=== PATIENT | female | born 1970 | race African-American/Black ===

== ENCOUNTER 2018-05-02 09:42 | Emergency (ER) | payer SELFPAY ==
[~2018-05-02] VITALS: Ht 167.6 cm; Wt 71.2 kg
[~2018-05-02 09:42] MED LIST: DIVA250T51; FLOUXETINE; QUET50TA; SIMV-13; TRIA50CA38
[2018-05-02 09:57] VITALS: BP 128/83
[2018-05-02] MEDS ORDERED: IPRATROPIUM BROM 0.5 MG/2.5ML INH SOL NEB ONE (10:45)
[2018-05-02] MEDS ORDERED: ALBUTEROL SULF 2.5 MG/0.5ML(0.5%) NEB SOLN NEB ONE (10:45)
== END 2018-05-02 11:15 | disposition home or self-care (01) ==
LOC: ER 09:42 → EDSEX 09:42 → ER 11:15
DX: J45.909 Unspecified asthma, uncomplicated (principal); I10 Essential (primary) hypertension
CPT/HCPCS: 71046; 94640; 99283; J7611; J7644

== ENCOUNTER → 2020-04-21 | Outpatient (CLI) | payer OTHER, MEDICAID ==
[~2020-04-21] MED LIST changes: +TRIA1CAP5; -TRIA50CA38
== END | disposition home or self-care (01) ==
LOC: Rad HDHVI 09:59
PROVIDERS: ATTEND Internal Medicine
DX: R07.89 Other chest pain (principal); Z86.73 Personal history of transient ischemic attack (TIA), and cerebral infarction without residual deficits
CPT/HCPCS: 93306

== ENCOUNTER → 2020-04-22 | Outpatient (CLI) | payer OTHER, MEDICAID | END | disposition home or self-care (01) | LOC: Rad HDHVI 08:07 | PROVIDERS: ATTEND Internal Medicine | DX: R07.89 Other chest pain (principal); Z86.73 Personal history of transient ischemic attack (TIA), and cerebral infarction without residual deficits | CPT/HCPCS: 93880 ==

== ENCOUNTER → 2020-04-29 | Outpatient (CLI) | payer OTHER, MEDICAID ==
[~2020-04-29] VITALS: Ht 167.6 cm; Wt 69.9 kg
== END | disposition home or self-care (01) ==
LOC: Rad HDHVI 13:09
PROVIDERS: ATTEND Internal Medicine
DX: I10 Essential (primary) hypertension (principal); E78.00 Pure hypercholesterolemia, unspecified; R07.89 Other chest pain; Z86.73 Personal history of transient ischemic attack (TIA), and cerebral infarction without residual deficits; Z82.49 Family history of ischemic heart disease and other diseases of the circulatory system
CPT/HCPCS: 78452; 93017; 96374; A9500

== ENCOUNTER 2021-05-30 09:29 | Inpatient (IN) | payer OTHER, MEDICAID ==
[~2021-05-30] VITALS: Ht 165.1 cm; Wt 76.2 kg
[~2021-05-30 09:29] MED LIST changes: +DIVA250T4; -DIVA250T51
[2021-05-30 10:04] LABS: Basophils # (auto) 0 10 ^3/uL (0-0.2); Eosinophils # (auto) 0.1 10 ^3/uL (0-0.8); Eosinophils % (auto) 1.2 % (0.0-7.0); Hematocrit 42.2 % (36.0-46.0); Hemoglobin 14.4 g/dL (12.2-16.2); Lymphocytes # (auto) 1.4 10 ^3/uL (0.4-5.4); Lymphocytes % (auto) 29.4 % (10.0-50.0); Mean Corpuscular Hemoglobin 31.7 pg (28.0-32.0); Mean Corpuscular Hgb Conc. 34.1 g/dL (32.0-36.0); Mean Corpuscular Volume 92.8 fL (80.0-100.0); Monocytes # (auto) 0.2 10 ^3/uL (0-1.3); Monocytes % (auto) 4.6 % (0.0-12.0); Neutrophils # (auto) 3.1 10 ^3/uL (1.6-8.6); Neutrophils % (auto) 63.8 % (37.0-80.0); Nucleated Red Blood Cells % 0.1 %; Red Blood Cells 4.55 10^6/uL (4.0-5.20); White Blood Cell 4.9 10^3/uL (4.4-10.8)
[2021-05-30 10:19] LABS: Albumin 3.5 g/dL (3.4-5.0); Calcium 8.9 mg/dL (8.5-10.1); Potassium 3.2 mmol/L (3.5-5.1)
[2021-05-30 10:22] LABS: BUN/Creatinine Ratio 15.5; Bilirubin, Total 0.2 mg/dL (0.2-1.0); Total Protein 7.7 g/dL (6.4-8.2)
[2021-05-30 10:40] LABS: INR 0.96 (0.9-1.15); Partial Thromboplastin Time 24.5 sec (23.6-33.0)
[2021-05-30] MEDS ORDERED: ONDANSETRON ODT 4 MG TAB PO ONE (11:15)
[2021-05-30] MEDS ORDERED: MORPHINE SULFATE INJECTION 2 MG/ML SYRG IM ONE (11:15)
[2021-05-30] MEDS ORDERED: POTASSIUM CHL 20 Meq TABLET PO ONE (11:15)
[2021-05-30] MEDS ORDERED: ONDANSETRON HCL 4 MG/2 ML VIAL IV ONE (11:45)
[2021-05-30] MEDS ORDERED: ACETAMINOPHEN/CODEINE#3 (300/30mg) TAB PO ONE (15:45)
[2021-05-30] MEDS ORDERED: HYDROcodone-ACET 5/325MG TAB PO ONE (18:30)
[2021-05-30] MEDS ORDERED: NITROGLYCERIN 0.4 MG SL TAB SL PRN (18:30)
[2021-05-30 23:00] VITALS: BP 133/66
[2021-05-31] MEDS ORDERED: LORazepam 2MG/ML-1ML VIAL IV PRN ×2 (00:15)
[2021-05-31] MEDS: HYDROcodone-ACET 5/325MG TAB PO PRN ×2 (00:43→18:37)
[2021-05-31] MEDS: ZOLPIDEM TARTRATE 5 MG TAB PO PRN (01:37)
[2021-05-31] MEDS ORDERED: TRIATAB3 PO (03:56)
[2021-05-31] MEDS ORDERED: LAMO100T44 PO (03:56)
[2021-05-31] MEDS ORDERED: ASPI-543 PO (03:56)
[2021-05-31] MEDS ORDERED: LURA40TA PO (03:56)
[2021-05-31] MEDS ORDERED: ZOLP10TA6 PO (03:56)
[2021-05-31] MEDS ORDERED: CLON0.5T3 PO (03:56)
[2021-05-31] MEDS ORDERED: ESTR1TAB6 PO (03:56)
[2021-05-31] MEDS ORDERED: LISI-275 PO (03:56)
[2021-05-31 05:28] LABS: Cholesterol 147 mg/dL (< 200); Triglycerides 85 mg/dL (< 150)
[2021-05-31 05:30] LABS: HDL Cholesterol 37 mg/dL (40-59); LDL Cholesterol 95 mg/dL (< 100)
[2021-05-31 08:37] LABS: INR 0.99 (0.9-1.15); Partial Thromboplastin Time 24.3 sec (23.6-33.0)
[2021-05-31 08:44] LABS: CRP High Sensitivity 0.94 mg/dL (< 0.3)
[2021-05-31] MEDS ORDERED: GADOTERATE MEG 7.5 MMOL/15ml INJ (0.5MMOL/ml) IV ONE (08:49)
[2021-05-31] MEDS: lamoTRIgine 100 MG TAB PO SCH ×2 (09:54→22:41)
[2021-05-31] MEDS: ASPirin 81 mg TAB PO SCH (09:54)
[2021-05-31] MEDS: FLUoxetine HCL 20 MG CAP PO SCH (09:55)
[2021-05-31] MEDS ORDERED: LATUDA 60 MG PO SCH ×2 (10:00→20:00)
[2021-05-31] MEDS ORDERED: diphenhdrAMINE HCL 25 MG CAP PO PRN (13:15)
[2021-05-31 22:30] VITALS: BP 114/73
[2021-05-31] MEDS: ATORVASTATIN 20 MG TAB PO SCH (22:41)
[2021-06-01] MEDS: HYDROcodone-ACET 5/325MG TAB PO PRN ×3 (00:40→17:36)
[2021-06-01 05:11] VITALS: BP 118/69
[2021-06-01 08:11] LABS: BUN/Creatinine Ratio 22.8; Bilirubin, Total 0.2 mg/dL (0.2-1.0); Calcium 8.5 mg/dL (8.5-10.1); Potassium 3.7 mmol/L (3.5-5.1); Total Protein 6.7 g/dL (6.4-8.2)
[2021-06-01 09:00] VITALS: BP 109/69
[2021-06-01] MEDS: ASPirin 81 mg TAB PO SCH (10:34)
[2021-06-01] MEDS: lamoTRIgine 100 MG TAB PO SCH ×2 (10:34→21:09)
[2021-06-01] MEDS: FLUoxetine HCL 20 MG CAP PO SCH (10:34)
[2021-06-01 13:00] VITALS: BP 120/85
[2021-06-01 17:00] VITALS: BP 132/62
[2021-06-01] MEDS: LATUDA 20 MG TAB PO SCH (21:09)
[2021-06-01] MEDS: ATORVASTATIN 20 MG TAB PO SCH (21:09)
[2021-06-01] MEDS: DOCUSATE SOD 100 MG CAP PO SCH (21:10)
[2021-06-01 22:00] VITALS: BP 119/85
[2021-06-02] MEDS: HYDROcodone-ACET 5/325MG TAB PO PRN ×2 (04:27→22:58)
[2021-06-02 05:26] VITALS: BP 117/72
[2021-06-02] MEDS: MORPHINE SULFATE INJECTION 2 MG/ML SYRG IV PRN ×2 (08:37→17:00)
[2021-06-02 09:00] VITALS: BP 115/74
[2021-06-02] MEDS: lamoTRIgine 100 MG TAB PO SCH ×2 (10:00→22:56)
[2021-06-02] MEDS: DOCUSATE SOD 100 MG CAP PO SCH ×2 (10:00→22:55)
[2021-06-02] MEDS: ASPirin 81 mg TAB PO SCH (10:00)
[2021-06-02] MEDS: FLUoxetine HCL 20 MG CAP PO SCH (10:00)
[2021-06-02 13:00] VITALS: BP 134/90
[2021-06-02 17:00] VITALS: BP 138/93
[2021-06-02 22:00] VITALS: BP 128/78
[2021-06-02] MEDS: ATORVASTATIN 20 MG TAB PO SCH (22:57)
[2021-06-02] MEDS: ZOLPIDEM TARTRATE 5 MG TAB PO PRN (22:58)
[2021-06-02] MEDS: LATUDA 20 MG TAB PO SCH (23:53)
[2021-06-03 05:00] VITALS: BP 124/87
[2021-06-03 09:00] VITALS: BP 139/96
[2021-06-03] MEDS: ASPirin 81 mg TAB PO SCH (10:00)
[2021-06-03] MEDS: FLUoxetine HCL 20 MG CAP PO SCH (10:00)
[2021-06-03] MEDS: lamoTRIgine 100 MG TAB PO SCH (10:00)
[2021-06-03] MEDS: DOCUSATE SOD 100 MG CAP PO SCH (10:00)
[2021-06-03] MEDS: HYDROcodone-ACET 5/325MG TAB PO PRN (10:10)
[2021-06-03] MEDS ORDERED: ASPI-498 OR (11:14)
[2021-06-03] MEDS ORDERED: FLUO60TA7 PO (11:14)
[2021-06-03] MEDS ORDERED: HYDR-4902 PO (11:14)
[2021-06-03 11:54] VITALS: BP 139/96
[2021-06-03 13:00] VITALS: BP 143/83
== END 2021-06-03 14:56 | disposition home or self-care (01) | DRG 101 ==
LOC: ER 09:29 → OVERFLOW 18:26 → WEST WING 05-31 22:20
PROVIDERS: ADMIT Hospitalist; ATTEND Family Medicine
DX: G40.209 Localization-related (focal) (partial) symptomatic epilepsy and epileptic syndromes with complex partial seizures, not intractable, without status epilepticus (principal); I16.9 Hypertensive crisis, unspecified; I69.354 Hemiplegia and hemiparesis following cerebral infarction affecting left non-dominant side; H53.8 Other visual disturbances; E66.01 Morbid (severe) obesity due to excess calories; E78.5 Hyperlipidemia, unspecified; Z20.822 Contact with and (suspected) exposure to COVID-19; E78.00 Pure hypercholesterolemia, unspecified; F41.9 Anxiety disorder, unspecified; G47.00 Insomnia, unspecified; I10 Essential (primary) hypertension; J45.20 Mild intermittent asthma, uncomplicated; Z79.899 Other long term (current) drug therapy; Z81.8 Family history of other mental and behavioral disorders; Z82.49 Family history of ischemic heart disease and other diseases of the circulatory system; Z90.49 Acquired absence of other specified parts of digestive tract; Z68.28 Body mass index [BMI] 28.0-28.9, adult
CPT/HCPCS: 36415; 70450; 70551; 71275; 74176; 76510; 80053; 80061; 82728; 83036; 83735; 83880; 84100; 84443; 84484; 85025; 85379; 85610; 85652; 85730; 86141; 87040; 87426; 93005; 93970; 95819; 96372; 96374; G0378; J2405; Q0162

== ENCOUNTER 2021-08-19 09:08 | Day surgery (SDC) | payer OTHER, MEDICAID ==
[2021-08-16 10:01] LABS: Urine Bacteria FEW /hpf (None Seen); Urine Blood Negative /uL (Negative); Urine Specific Gravity 1.013 (1.001-1.035); Urine WBC 1 /hpf (0 - 5)
[2021-08-16 10:03] LABS: Basophils # (auto) 0 10 ^3/uL (0-0.2); Basophils % (auto) 0.3 % (0.0-2.0); Eosinophils # (auto) 0 10 ^3/uL (0-0.8); Eosinophils % (auto) 0.3 % (0.0-7.0); Hematocrit 45.5 % (36.0-46.0); Hemoglobin 15.5 g/dL (12.2-16.2); Lymphocytes # (auto) 1.2 10 ^3/uL (0.4-5.4); Lymphocytes % (auto) 15.5 % (10.0-50.0); Mean Corpuscular Hemoglobin 31.5 pg (28.0-32.0); Mean Corpuscular Volume 92.6 fL (80.0-100.0); Monocytes # (auto) 0.5 10 ^3/uL (0-1.3); Monocytes % (auto) 6.5 % (0.0-12.0); Neutrophils # (auto) 5.9 10 ^3/uL (1.6-8.6); Neutrophils % (auto) 77.4 % (37.0-80.0); Nucleated Red Blood Cells % 0.1 %; Red Blood Cells 4.91 10^6/uL (4.0-5.20); White Blood Cell 7.6 10^3/uL (4.4-10.8)
[2021-08-16 10:13] LABS: INR 0.99 (0.9-1.15); Partial Thromboplastin Time 25.9 sec (23.6-33.0)
[2021-08-16 10:31] LABS: Potassium 3.4 mmol/L (3.5-5.1)
[2021-08-16 10:41] LABS: Albumin 3.9 g/dL (3.4-5.0); BUN/Creatinine Ratio 9.5; Bilirubin, Total 0.2 mg/dL (0.2-1.0); Calcium 9.4 mg/dL (8.5-10.1); Total Protein 8.8 g/dL (6.4-8.2)
[~2021-08-19] VITALS: Ht 167.6 cm; Wt 81.6 kg
[~2021-08-19 09:08] MED LIST changes: +ACET325T82 PO; +ASPI-498 OR; +BENZ1TAB2 PO; +BUSP5TAB51 PO; +CLON0.5T3 PO; -DIVA250T4; +ESTR1TAB6 PO; -FLOUXETINE; +FLUO60TA7 PO; +HYDR-4902 PO; +HYDR25CA PO; +IBUP600T27 PO; +LAMO100T44 PO; +LISI-275 PO; +LURA40TA PO; +OXCA600T3 PO; -QUET50TA; -SIMV-13; +TOPI100T68 PO; -TRIA1CAP5; +TRIATAB3 PO; +ZOLP10TA6 PO
[2021-08-19] MEDS ORDERED: MIDAZOLAM HCL 2MG/2ML 2ml VIAL (1mg/ml) ONE (13:58)
[2021-08-19] MEDS ORDERED: fentaNYL CITRATE 100 MCG/2 ML VL ONE (13:58)
[2021-08-19] MEDS ORDERED: PROPOFOL 10 MG/ML 20 ML IV ONE (14:16)
[2021-08-19 14:30] VITALS: BP 124/78
[2021-08-19] MEDS ORDERED: ONDANSETRON HCL 4 MG/2 ML VIAL IV PRN (14:30)
== END 2021-08-19 14:45 | disposition home or self-care (01) ==
LOC: GI 09:08
PROVIDERS: ATTEND Internal Medicine Gastroenterology
DX: K62.5 Hemorrhage of anus and rectum (principal); K64.8 Other hemorrhoids; K63.89 Other specified diseases of intestine; I10 Essential (primary) hypertension; J45.909 Unspecified asthma, uncomplicated; F31.9 Bipolar disorder, unspecified; G47.33 Obstructive sleep apnea (adult) (pediatric); Z90.49 Acquired absence of other specified parts of digestive tract; Z98.891 History of uterine scar from previous surgery; Z90.710 Acquired absence of both cervix and uterus; Z88.0 Allergy status to penicillin; Z88.1 Allergy status to other antibiotic agents; Z86.73 Personal history of transient ischemic attack (TIA), and cerebral infarction without residual deficits; Z20.822 Contact with and (suspected) exposure to COVID-19
CPT/HCPCS: 36415; 45378; 80053; 81001; 85025; 85610; 85730; C9803; J2250; J2704; J3010; J7030; U0003

== ENCOUNTER 2021-09-22 07:46 | Emergency (ER) | payer OTHER, MEDICAID ==
[~2021-09-22] VITALS: Ht 167.6 cm; Wt 81.6 kg
[2021-09-22] MEDS ORDERED: SODIUM CHLORIDE 0.9% 1,000 ML IV ONE (12:45)
[2021-09-22] MEDS ORDERED: ALBUTEROL SULF 2.5 MG/0.5ML(0.5%) NEB SOLN NEB ONE (12:45)
[2021-09-22] MEDS ORDERED: methylPREDNISolone SOD SUCC 125 MG/2 ML VL IV ONE (12:45)
[2021-09-22] MEDS ORDERED: SODIUM CHLORIDE 0.9% 500 ML IV ONE (12:45)
[2021-09-22] MEDS ORDERED: IPRATROPIUM BROM 0.5 MG/2.5ML INH SOL NEB ONE (12:45)
[2021-09-22] MEDS ORDERED: ALBU108A5 IN (15:49)
[2021-09-22] MEDS ORDERED: PRED20TA2 PO (15:49)
[2021-09-22] MEDS ORDERED: AZIT500T PO (15:49)
[2021-09-22 16:05] VITALS: BP 132/89
== END 2021-09-22 16:05 | disposition home or self-care (01) ==
LOC: ER 07:46
DX: J45.901 Unspecified asthma with (acute) exacerbation (principal); E78.5 Hyperlipidemia, unspecified; I10 Essential (primary) hypertension; Z90.49 Acquired absence of other specified parts of digestive tract; Z86.73 Personal history of transient ischemic attack (TIA), and cerebral infarction without residual deficits
CPT/HCPCS: 71046; 94640; 96361; 96374; 99283; J2930; J7030; J7040; J7644

== ENCOUNTER 2021-12-12 19:05 | Inpatient (IN) | payer OTHER, MEDICAID ==
[~2021-12-12] VITALS: Ht 167.6 cm; Wt 82.4 kg
[~2021-12-12 19:05] MED LIST changes: +ALBU108A5 IN; +AZIT500T PO; +PRED20TA2 PO
[2021-12-12] MEDS ORDERED: LORazepam 2MG/ML-1ML VIAL IV ONE (19:15)
[2021-12-12] MEDS ORDERED: levETIRAcetam 500 MG/5ML INJ IV ONE (20:36)
[2021-12-12] MEDS ORDERED: ONDANSETRON HCL 4 MG/2 ML VIAL IV PRN (21:30)
[2021-12-12] MEDS ORDERED: ALBUTEROL SULF 2.5 MG/0.5ML(0.5%) NEB SOLN NEB PRN (21:30)
[2021-12-12] MEDS ORDERED: LORazepam 2MG/ML-1ML VIAL IV PRN (21:30)
[2021-12-12] MEDS ORDERED: NITROGLYCERIN 0.4 MG SL TAB SL PRN (21:30)
[2021-12-12] MEDS ORDERED: MORPHINE SULFATE INJ 2 MG/ml SYRG IV PRN (21:30)
[2021-12-12 21:36] LABS: Albumin 3.3 g/dL (3.4-5.0); Anion Gap 5 (5-15); Blood Alcohol < 3.0 mg/dL (0-5); Blood Urea Nitrogen 14 mg/dL (7-18); Calcium 8.6 mg/dL (8.5-10.1); Carbon Dioxide 28 mmol/L (21-32); Chloride 106 mmol/L (98-107); Glucose 88 mg/dL (74-106); Sodium 139 mmol/L (136-145)
[2021-12-12 21:39] LABS: Alanine Aminotransferase 31 U/L (13-56); Alkaline Phosphatase 158 U/L (45-117); Aspartate Aminotransferase 18 U/L (15-37); BUN/Creatinine Ratio 15.2; Bilirubin, Total 0.2 mg/dL (0.2-1.0); GFR African American 82 mL/min; GFR Non-African American 68 mL/min; Total Protein 7.3 g/dL (6.4-8.2)
[2021-12-12 22:00] VITALS: BP 107/64
[2021-12-12] MEDS: lamoTRIgine 100 MG TAB PO SCH (22:00)
[2021-12-12] MEDS: LISINOPRIL 5 MG TAB PO SCH (22:11)
[2021-12-12] MEDS: OXcarbazepine 300 MG TAB PO SCH (22:11)
[2021-12-12] MEDS: TOPIRAMATE 100 MG TAB PO SCH (22:11)
[2021-12-12] MEDS: busPIRone HCL 10 MG TAB PO SCH (22:11)
[2021-12-12 22:16] LABS: Basophils # (auto) 0 10 ^3/uL (0-0.2); Basophils % (auto) 0.7 % (0.0-2.0); Eosinophils # (auto) 0.1 10 ^3/uL (0-0.8); Eosinophils % (auto) 1.2 % (0.0-7.0); Hematocrit 41.7 % (36.0-46.0); Hemoglobin 13.5 g/dL (12.2-16.2); Lymphocytes % (auto) 27.6 % (10.0-50.0); Mean Corpuscular Hemoglobin 30.5 pg (28.0-32.0); Mean Corpuscular Hgb Conc. 32.3 g/dL (32.0-36.0); Mean Corpuscular Volume 94.5 fL (80.0-100.0); Monocytes # (auto) 0.6 10 ^3/uL (0-1.3); Monocytes % (auto) 8.7 % (0.0-12.0); Neutrophils # (auto) 4.4 10 ^3/uL (1.6-8.6); Neutrophils % (auto) 61.8 % (37.0-80.0); Nucleated Red Blood Cells % 0.1 %; Red Blood Cells 4.42 10^6/uL (4.0-5.20); Red Cell Distribution Width 13.4 % (11.8-14.3); White Blood Cell 7.1 10^3/uL (4.4-10.8)
[2021-12-12 22:18] LABS: Potassium 3.9 mmol/L (3.5-5.1)
[2021-12-12] MEDS ORDERED: diazePAM 5 MG TAB PO ONE (22:30)
[2021-12-12 23:23] LABS: Alcohol, Urine < 3.0 mg/dL (0-10); Amphetamine Screen, Urine NEGATIVE (NEGATIVE); Barbiturate Scree,Urine NEGATIVE (NEGATIVE); Benzodiazephine Screen, Urine NEGATIVE (NEGATIVE); Cannabinoid Screen, Urine NEGATIVE (NEGATIVE); Cocaine Screen, Urine NEGATIVE (NEGATIVE); Opiate Scree,Urine NEGATIVE (NEGATIVE); Phencyclidine Screen, Urine NEGATIVE (NEGATIVE)
[2021-12-13] VITALS (7 sets, daily range): BP systolic 93–101; BP diastolic 46–69
[2021-12-13] MEDS: LISINOPRIL 5 MG TAB PO SCH ×2 (10:00→22:00)
[2021-12-13] MEDS: ASPirin 81 mg TAB PO SCH (10:08)
[2021-12-13] MEDS: busPIRone HCL 10 MG TAB PO SCH ×2 (10:08→21:58)
[2021-12-13] MEDS: ENOXAPARIN SOD 40 MG/0.4 ML SYRINGE SC SCH (10:09)
[2021-12-13] MEDS: TOPIRAMATE 100 MG TAB PO SCH ×3 (10:09→21:58)
[2021-12-13] MEDS: clonazePAM 0.5 MG TAB PO SCH (10:09)
[2021-12-13] MEDS: OXcarbazepine 300 MG TAB PO SCH ×3 (10:09→21:59)
[2021-12-13] MEDS: lamoTRIgine 100 MG TAB PO SCH (10:09)
[2021-12-13] MEDS ORDERED: ZOLPIDEM TARTRATE 5 MG TAB PO PRN (15:00)
[2021-12-13 22:25] LABS: Urine Bacteria FEW /hpf (None Seen); Urine Blood Negative /uL (Negative); Urine Specific Gravity 1.017 (1.001-1.035); Urine WBC 1 /hpf (0 - 5)
[2021-12-13] MEDS: ACETAMINOPHEN 325 MG TAB PO PRN (23:33)
[2021-12-14 05:00] VITALS: BP 101/59
[2021-12-14 05:47] LABS: Basophils # (auto) 0 10 ^3/uL (0-0.2); Basophils % (auto) 0.5 % (0.0-2.0); Eosinophils # (auto) 0.1 10 ^3/uL (0-0.8); Eosinophils % (auto) 1.6 % (0.0-7.0); Hemoglobin 13.6 g/dL (12.2-16.2); Lymphocytes # (auto) 1.9 10 ^3/uL (0.4-5.4); Lymphocytes % (auto) 34.4 % (10.0-50.0); Mean Corpuscular Hemoglobin 31.5 pg (28.0-32.0); Mean Corpuscular Hgb Conc. 33.2 g/dL (32.0-36.0); Mean Corpuscular Volume 94.7 fL (80.0-100.0); Monocytes # (auto) 0.4 10 ^3/uL (0-1.3); Monocytes % (auto) 7.9 % (0.0-12.0); Neutrophils # (auto) 3.1 10 ^3/uL (1.6-8.6); Neutrophils % (auto) 55.6 % (37.0-80.0); Red Blood Cells 4.32 10^6/uL (4.0-5.20); Red Cell Distribution Width 13.3 % (11.8-14.3); White Blood Cell 5.6 10^3/uL (4.4-10.8)
[2021-12-14 06:08] LABS: Potassium 3.4 mmol/L (3.5-5.1)
[2021-12-14 06:13] LABS: BUN/Creatinine Ratio 20.5; Calcium 8.6 mg/dL (8.5-10.1)
[2021-12-14 06:16] LABS: Bilirubin, Total 0.2 mg/dL (0.2-1.0); Total Protein 6.8 g/dL (6.4-8.2)
[2021-12-14 09:00] VITALS: BP 96/54
[2021-12-14] MEDS: TOPIRAMATE 100 MG TAB PO SCH ×2 (11:10→21:35)
[2021-12-14] MEDS: clonazePAM 0.5 MG TAB PO SCH (11:11)
[2021-12-14] MEDS: OXcarbazepine 300 MG TAB PO SCH ×2 (11:11→21:35)
[2021-12-14] MEDS: busPIRone HCL 10 MG TAB PO SCH ×2 (11:11→21:34)
[2021-12-14] MEDS: ASPirin 81 mg TAB PO SCH (11:11)
[2021-12-14] MEDS: ENOXAPARIN SOD 40 MG/0.4 ML SYRINGE SC SCH (11:12)
[2021-12-14] MEDS: LISINOPRIL 5 MG TAB PO SCH ×2 (11:12→21:35)
[2021-12-14 13:00] VITALS: BP 109/54
[2021-12-14] MEDS ORDERED: POTASSIUM CHL 20 Meq TABLET PO ONE (14:15)
[2021-12-14 16:30] VITALS: BP 95/54
[2021-12-14] MEDS: ACETAMINOPHEN 325 MG TAB PO PRN (20:10)
[2021-12-14 22:29] VITALS: BP 104/53
[2021-12-15 04:00] VITALS: BP 109/59
[2021-12-15 09:00] VITALS: BP 97/54
[2021-12-15] MEDS: ENOXAPARIN SOD 40 MG/0.4 ML SYRINGE SC SCH (09:02)
[2021-12-15] MEDS: LISINOPRIL 5 MG TAB PO SCH (09:03)
[2021-12-15] MEDS: busPIRone HCL 10 MG TAB PO SCH (09:03)
[2021-12-15] MEDS: clonazePAM 0.5 MG TAB PO SCH (09:03)
[2021-12-15] MEDS: OXcarbazepine 300 MG TAB PO SCH (09:03)
[2021-12-15] MEDS: ACETAMINOPHEN 325 MG TAB PO PRN (09:03)
[2021-12-15] MEDS: ASPirin 81 mg TAB PO SCH (09:04)
[2021-12-15] MEDS: TOPIRAMATE 100 MG TAB PO SCH (09:04)
[2021-12-15 12:11] VITALS: BP 97/54
[2021-12-15 13:00] VITALS: BP 97/58
== END 2021-12-15 14:30 | disposition home or self-care (01) | DRG 101 ==
LOC: EDBD 19:05 → ER 19:09 → TELE 21:34 → TELE-WESTW 23:35
PROVIDERS: ADMIT Nurse Practitioner; ATTEND Internal Medicine
DX: G40.909 Epilepsy, unspecified, not intractable, without status epilepticus (principal); I10 Essential (primary) hypertension; F31.9 Bipolar disorder, unspecified; F41.9 Anxiety disorder, unspecified; Z20.822 Contact with and (suspected) exposure to COVID-19; E78.5 Hyperlipidemia, unspecified; E87.6 Hypokalemia; G47.00 Insomnia, unspecified; J45.909 Unspecified asthma, uncomplicated; Z79.82 Long term (current) use of aspirin; Z79.899 Other long term (current) drug therapy; Z86.73 Personal history of transient ischemic attack (TIA), and cerebral infarction without residual deficits; Z81.8 Family history of other mental and behavioral disorders; Z82.49 Family history of ischemic heart disease and other diseases of the circulatory system; Z90.710 Acquired absence of both cervix and uterus; Z88.0 Allergy status to penicillin; Z88.8 Allergy status to other drugs, medicaments and biological substances; Z90.49 Acquired absence of other specified parts of digestive tract
CPT/HCPCS: 36415; 70450; 80053; 80307; 80320; 81001; 84443; 85025; 94640; 95819; 96365; 99291; G0378; J7060

== ENCOUNTER 2022-06-18 16:56 | Inpatient (IN) | payer OTHER, MEDICAID ==
[~2022-06-18] VITALS: Ht 167.6 cm; Wt 76.3 kg
[2022-06-18] MEDS ORDERED: NITROGLYCERIN 0.4 MG SL TAB SL ONE (17:15)
[2022-06-18] MEDS ORDERED: ONDANSETRON ODT 4 MG TAB PO ONE (17:15)
[2022-06-18 17:26] LABS: Basophils # (auto) 0.1 10 ^3/uL (0-0.2); Basophils % (auto) 1.3 % (0.0-2.0); Eosinophils # (auto) 0.2 10 ^3/uL (0-0.8); Hematocrit 40.8 % (36.0-46.0); Lymphocytes # (auto) 2.6 10 ^3/uL (0.4-5.4); Lymphocytes % (auto) 25.1 % (10.0-50.0); Mean Corpuscular Hemoglobin 32.8 pg (28.0-32.0); Mean Corpuscular Hgb Conc. 34.2 g/dL (32.0-36.0); Mean Corpuscular Volume 95.8 fL (80.0-100.0); Monocytes # (auto) 0.8 10 ^3/uL (0-1.3); Monocytes % (auto) 7.5 % (0.0-12.0); Neutrophils # (auto) 6.7 10 ^3/uL (1.6-8.6); Neutrophils % (auto) 64.1 % (37.0-80.0); Nucleated Red Blood Cells % 0.1 %; Red Blood Cells 4.26 10^6/uL (4.0-5.20); Red Cell Distribution Width 13.4 % (11.8-14.3); White Blood Cell 10.4 10^3/uL (4.4-10.8)
[2022-06-18 17:45] LABS: Albumin 3.2 g/dL (3.4-5.0); BUN/Creatinine Ratio 22.9; Calcium 8.7 mg/dL (8.5-10.1); Potassium 3.9 mmol/L (3.5-5.1)
[2022-06-18 17:48] LABS: Bilirubin, Total 0.2 mg/dL (0.2-1.0); Total Protein 6.9 g/dL (6.4-8.2)
[2022-06-18] MEDS ORDERED: METOCLOPRAMIDE HCL 5MG/ml INJ 2ml VIAL IV ONE (18:45)
[2022-06-18] MEDS ORDERED: HYDROmorphone HCL 2 MG/ML VL/or syr IV ONE (22:45)
[2022-06-19] MEDS ORDERED: TEMAZEPAM 15 MG CAP PO PRN (01:45)
[2022-06-19] MEDS ORDERED: ACETAMINOPHEN 325 MG TAB PO PRN (01:45)
[2022-06-19] MEDS ORDERED: ONDANSETRON HCL 4 MG/2 ML VIAL IV PRN (01:45)
[2022-06-19] MEDS ORDERED: MORPHINE SULFATE INJ 2 MG/ml SYRG IV PRN (03:15)
[2022-06-19] MEDS ORDERED: NITROGLYCERIN 0.4 MG SL TAB SL PRN (03:15)
[2022-06-19] MEDS: D5W/SOD CHL 0.45% 1,000 ML IV SCH ×2 (03:45→18:44)
[2022-06-19 05:43] LABS: Basophils # (auto) 0 10 ^3/uL (0-0.2); Basophils % (auto) 0.6 % (0.0-2.0); Eosinophils # (auto) 0.1 10 ^3/uL (0-0.8); Eosinophils % (auto) 1.7 % (0.0-7.0); Hematocrit 38.9 % (36.0-46.0); Hemoglobin 13.3 g/dL (12.2-16.2); Lymphocytes # (auto) 1.9 10 ^3/uL (0.4-5.4); Lymphocytes % (auto) 24.4 % (10.0-50.0); Mean Corpuscular Hemoglobin 32.6 pg (28.0-32.0); Mean Corpuscular Hgb Conc. 34.2 g/dL (32.0-36.0); Mean Corpuscular Volume 95.2 fL (80.0-100.0); Monocytes # (auto) 0.3 10 ^3/uL (0-1.3); Monocytes % (auto) 4.1 % (0.0-12.0); Neutrophils # (auto) 5.3 10 ^3/uL (1.6-8.6); Neutrophils % (auto) 69.2 % (37.0-80.0); Nucleated Red Blood Cells % 0.1 %; Red Blood Cells 4.09 10^6/uL (4.0-5.20); Red Cell Distribution Width 13.2 % (11.8-14.3); White Blood Cell 7.7 10^3/uL (4.4-10.8)
[2022-06-19 05:57] LABS: Potassium 3.5 mmol/L (3.5-5.1)
[2022-06-19 06:04] LABS: Albumin 3.2 g/dL (3.4-5.0); BUN/Creatinine Ratio 23.4; Bilirubin, Total 0.3 mg/dL (0.2-1.0); Calcium 8.5 mg/dL (8.5-10.1); Total Protein 6.9 g/dL (6.4-8.2)
[2022-06-19] MEDS: HYDROcodone-ACET 5/325MG TAB PO PRN (06:12)
[2022-06-19] MEDS: HYDROmorphone HCL 2 MG/ML VL/or syr IV PRN (18:25)
[2022-06-19 18:51] VITALS: BP 135/94
[2022-06-19 20:00] VITALS: BP 135/80
[2022-06-19 22:00] VITALS: BP 135/80
[2022-06-20] MEDS: D5W/SOD CHL 0.45% 1,000 ML IV SCH ×2 (04:19→07:45)
[2022-06-20 05:00] VITALS: BP 108/61
[2022-06-20 06:00] LABS: Basophils # (auto) 0 10 ^3/uL (0-0.2); Basophils % (auto) 0.7 % (0.0-2.0); Eosinophils # (auto) 0.1 10 ^3/uL (0-0.8); Eosinophils % (auto) 1.2 % (0.0-7.0); Lymphocytes # (auto) 1.4 10 ^3/uL (0.4-5.4); Mean Corpuscular Hemoglobin 32.2 pg (28.0-32.0); Mean Corpuscular Hgb Conc. 34.1 g/dL (32.0-36.0); Mean Corpuscular Volume 94.2 fL (80.0-100.0); Monocytes # (auto) 0.3 10 ^3/uL (0-1.3); Monocytes % (auto) 5.1 % (0.0-12.0); Neutrophils # (auto) 4.6 10 ^3/uL (1.6-8.6); Nucleated Red Blood Cells % 0.1 %; Red Blood Cells 4.03 10^6/uL (4.0-5.20); Red Cell Distribution Width 13.1 % (11.8-14.3); White Blood Cell 6.5 10^3/uL (4.4-10.8)
[2022-06-20 06:16] LABS: Potassium 3.3 mmol/L (3.5-5.1)
[2022-06-20 06:22] LABS: Albumin 2.6 g/dL (3.4-5.0); BUN/Creatinine Ratio 15.6; Bilirubin, Total 0.4 mg/dL (0.2-1.0); Calcium 8.1 mg/dL (8.5-10.1); Total Protein 5.8 g/dL (6.4-8.2)
[2022-06-20 07:20] LABS: Urine Blood 1+ /uL (Negative)
[2022-06-20 08:00] VITALS: BP 114/72
[2022-06-20 08:03] LABS: Alcohol, Urine < 3.0 mg/dL (0-10); Amphetamine Screen, Urine NEGATIVE (NEGATIVE); Barbiturate Scree,Urine NEGATIVE (NEGATIVE); Benzodiazephine Screen, Urine NEGATIVE (NEGATIVE); Cannabinoid Screen, Urine NEGATIVE (NEGATIVE); Cocaine Screen, Urine NEGATIVE (NEGATIVE); Opiate Scree,Urine NEGATIVE (NEGATIVE); Phencyclidine Screen, Urine NEGATIVE (NEGATIVE)
[2022-06-20] MEDS: HYDROmorphone HCL 2 MG/ML VL/or syr IV PRN (08:27)
[2022-06-20 12:00] VITALS: BP 114/57
[2022-06-20] MEDS ORDERED: POTASSIUM CHL 20 Meq TABLET PO ONE (12:15)
[2022-06-20 14:18] LABS: INR 0.97 (0.9-1.15); Partial Thromboplastin Time 23.7 sec (24.6-33.4)
[2022-06-20 14:23] LABS: Albumin 2.7 g/dL (3.4-5.0); Calcium 8.3 mg/dL (8.5-10.1); Magnesium 2.1 mg/dL (1.6-2.6)
[2022-06-20 14:25] LABS: BUN/Creatinine Ratio 11.4
[2022-06-20 14:28] LABS: Bilirubin, Total 0.4 mg/dL (0.2-1.0); Total Protein 6.2 g/dL (6.4-8.2)
[2022-06-20] MEDS: LACTATED RINGER'S 1,000 ML IV SCH ×2 (14:48→23:56)
[2022-06-20 16:00] VITALS: BP 105/55
[2022-06-20] MEDS ORDERED: MANNITOL FTV 25% 12.5 GM/50 ML 50 ML IV ONE (16:00)
[2022-06-20] MEDS ORDERED: TAMSULOSIN HYDROCHLORIDE 0.4 MG CAP PO SCH (18:00)
[2022-06-20 20:00] VITALS: BP 108/62
[2022-06-20] MEDS: HYDROcodone-ACET 5/325MG TAB PO PRN ×2 (22:29→23:55)
[2022-06-21 03:14] VITALS: BP 128/75
[2022-06-21 05:58] LABS: Basophils # (auto) 0 10 ^3/uL (0-0.2); Basophils % (auto) 0.7 % (0.0-2.0); Eosinophils # (auto) 0.1 10 ^3/uL (0-0.8); Eosinophils % (auto) 2.2 % (0.0-7.0); Hematocrit 37.7 % (36.0-46.0); Hemoglobin 12.8 g/dL (12.2-16.2); Lymphocytes # (auto) 1.7 10 ^3/uL (0.4-5.4); Lymphocytes % (auto) 30.3 % (10.0-50.0); Mean Corpuscular Hgb Conc. 33.9 g/dL (32.0-36.0); Mean Corpuscular Volume 94.3 fL (80.0-100.0); Monocytes # (auto) 0.4 10 ^3/uL (0-1.3); Monocytes % (auto) 6.2 % (0.0-12.0); Neutrophils # (auto) 3.5 10 ^3/uL (1.6-8.6); Neutrophils % (auto) 60.6 % (37.0-80.0); Red Cell Distribution Width 13.3 % (11.8-14.3); White Blood Cell 5.8 10^3/uL (4.4-10.8)
[2022-06-21 05:59] VITALS: BP 118/66
[2022-06-21 06:27] LABS: Potassium 3.8 mmol/L (3.5-5.1)
[2022-06-21 06:35] LABS: Albumin 2.7 g/dL (3.4-5.0); BUN/Creatinine Ratio 14.8; Bilirubin, Total 0.6 mg/dL (0.2-1.0); Calcium 8.6 mg/dL (8.5-10.1); Total Protein 6.1 g/dL (6.4-8.2)
[2022-06-21 09:00] VITALS: BP 146/71
[2022-06-21 13:00] VITALS: BP 113/66
== END 2022-06-21 18:00 | disposition home or self-care (01) | DRG 439 ==
LOC: ER 16:59 → OVERFLOW 06-19 03:10 → WEST WING 06-19 18:20
PROVIDERS: ADMIT Nurse Practitioner Family; ATTEND Internal Medicine
DX: K85.90 Acute pancreatitis without necrosis or infection, unspecified (principal); N39.0 Urinary tract infection, site not specified; N20.0 Calculus of kidney; E78.5 Hyperlipidemia, unspecified; E88.09 Other disorders of plasma-protein metabolism, not elsewhere classified; I10 Essential (primary) hypertension; I25.10 Atherosclerotic heart disease of native coronary artery without angina pectoris; R56.9 Unspecified convulsions; Z20.822 Contact with and (suspected) exposure to COVID-19; J45.909 Unspecified asthma, uncomplicated; Z79.899 Other long term (current) drug therapy; Z90.49 Acquired absence of other specified parts of digestive tract; Z86.73 Personal history of transient ischemic attack (TIA), and cerebral infarction without residual deficits; Z88.0 Allergy status to penicillin; Z88.1 Allergy status to other antibiotic agents; Z90.710 Acquired absence of both cervix and uterus
CPT/HCPCS: 36415; 71045; 74176; 80053; 80061; 80307; 81003; 81025; 83690; 83735; 83880; 84484; 85025; 85610; 85730; 87426; 93005; G0378; J2405; Q0162

== ENCOUNTER → 2022-06-22 | Outpatient (CLI) | payer OTHER, MEDICAID ==
[2022-06-22 14:11] LABS: Albumin 3.6 g/dL (3.4-5.0); BUN/Creatinine Ratio 20.3; Calcium 9.5 mg/dL (8.5-10.1); Potassium 3.5 mmol/L (3.5-5.1)
[2022-06-22 14:13] LABS: Bilirubin, Total 0.4 mg/dL (0.2-1.0); Total Protein 7.9 g/dL (6.4-8.2)
== END | disposition home or self-care (01) ==
LOC: LAB 13:33
PROVIDERS: ATTEND Internal Medicine
DX: I10 Essential (primary) hypertension (principal); E78.5 Hyperlipidemia, unspecified
CPT/HCPCS: 36415; 80053

== ENCOUNTER 2023-08-14 13:15 | Emergency (ER) | payer OTHER, MEDICAID ==
[~2023-08-14] VITALS: Ht 175.3 cm; Wt 81.9 kg
[~2023-08-14 13:15] MED LIST changes: -BENZ1TAB2 PO; +BENZ1TAB6 PO; +IBUP-1454 PO; -IBUP600T27 PO; -LURA40TA PO; +LURA40TA2 PO
[2023-08-14 14:59] VITALS: BP 162/128; PULSE 78; RESP 12; O2SAT 96
[2023-08-14] MEDS ORDERED: ZOFR4T PO (16:51)
== END 2023-08-14 20:05 | disposition home or self-care (01) ==
LOC: ER 13:15
DX: J06.9 Acute upper respiratory infection, unspecified (principal); J45.909 Unspecified asthma, uncomplicated; E78.5 Hyperlipidemia, unspecified; I10 Essential (primary) hypertension; Z90.49 Acquired absence of other specified parts of digestive tract; Z90.710 Acquired absence of both cervix and uterus
CPT/HCPCS: 71045

== ENCOUNTER 2024-03-22 00:20 | Emergency (ER) | payer OTHER, MEDICAID ==
[~2024-03-22] VITALS: Ht 167.6 cm; Wt 82.0 kg
[~2024-03-22 00:20] MED LIST changes: +ZOFR4T PO
--- NOTE | 2024-03-22 00:41 | ED.PDOC ---
HPI Comments 53-year-old female who came to ER via EMS for chest pains. History of hypertension, dyslipidemia, asthma, seizures, and CVA. States for the past few hours she has been experiencing substernal chest pains, pressure, sharp, nonradiating, associated with dizziness and blurring of vision and shortness of breath. Patient took sleeping pills, trazodone 250 mg, but offered no relief. Chest pains progressively worsened prompting patient to have to the ER. Chief Complaint: Chest Pain Time Seen by MD: 00:41 Primary Care Provider: [facility] Reviewed Notes: Nurses Notes Allergies: Coded Allergies: Erythromycin (Verified Allergy, Mild, 11/02/10) Penicillins (Verified Allergy, Mild, 08/19/21) Home Meds Active Scripts Ondansetron Odt 4MG Tab (ZOFRAN PO) 4 Mg Tb, 4 MG PO Q6HPRN PRN, #20 TAB ODT TAB-DISSOLVE IN MOUTH, THEN SWALLOW Prov:KEZIA WHITAKER PAC 08/14/23 Prednisone (Prednisone) 20 Mg Tab, 20 MG PO BID for 5 Days, #10 MG Prov:SASCHA SANTOS MD 09/22/21 Albuterol Sulfate (Albuterol Sulfate Hfa) 108 Mcg/Act Aer, 108 MCG IN TID, #1 AER Prov:SASCHA SANTOS MD 09/22/21 Azithromycin (Zithromax) 500 Mg Tab, 1 TAB PO DAILY, #5 TAB Prov:SASCHA SANTOS MD 09/22/21 Hydrocodone-Acetaminophen (Hydrocodone Bitartrate/AC 5-325 mg) 1 Tab Tab, 1 TAB PO Q8HR PRN, #30 TAB Prov:LUBA DAVILA MD 06/03/21 Fluoxetine HCl (Fluoxetine) 60 Mg Tab, 20 MG PO DAILY, #90 TAB Prov:LUBA DAVILA MD 06/03/21 Aspirin (ASPIRIN 81) 81 Mg Tab, 81 MG OR DAILY, #90 TAB Prov:LUBA DAVILA MD 06/03/21 Reported Medications Ibuprofen (Ibuprofen) 600 Mg Tab, 600 MG PO, TAB 08/16/21 Acetaminophen (Apap) 325 Mg Tab, 325 MG PO, TAB 08/16/21 Hydroxyzine Pamoate (Vistaril) 25 Mg Cap, 25 MG PO HS, CAP 08/16/21 Topiramate (Topiramate) 100 Mg Tab, 100 MG PO BID, TAB 08/16/21 Buspirone Hcl (Buspirone Hcl) 5 Mg Tab, 10 MG PO BID, TAB 08/16/21 Benztropine Mesylate (Benztropine Mesylate) 1 Mg Tab, 1 MG PO, TAB 08/16/21 Oxcarbazepine (Trileptal) 600 Mg Tab, 300 MG PO BID, TAB 08/16/21 Clonazepam (KlonoPIN TABLET) 0.5 Mg Tb, 1 TAB PO DAILY, #30 TAB 05/31/21 Triamterene & Hydrochlorothiaz (Maxzide-25) Tab, 1 TAB PO DAILY, #30 TAB 5 Refills 05/31/21 Zolpidem Tartrate (Zolpidem Tartrate) 10 Mg Tab, 1 TAB PO QPM, #30 TAB 2 Refills 05/31/21 Estradiol (Estradiol) 1 Mg Tab, 1 MG PO DAILY, MG 05/31/21 Lamotrigine (Lamotrigine) 100 Mg Tab, 1 TAB PO BID, #60 TAB 05/31/21 Lurasidone Hydrochloride (LATUDA) Unknown Strength Tab, PO QPM, #30 TAB 05/31/21 Lisinopril (Lisinopril) 5 Mg Tab, 5 MG PO BID for 30 Days, MG 05/31/21 Information Source: Patient Mode of Arrival: EMS Severity: Moderate Timing: Hours Duration: Since onset Prehospital treatment: Treatment Location: Substernal Radiation: No Radiation Quality: Sharp, Pressure Onset: With Light Exertion Cardiac Risk Factors: Hyperlipidemia, HTN PE Risk Factors: None History of: Similar pain in past Associated Signs and Symptoms: SOB Past Medical History PAST MEDICAL HISTORY: Asthma, CVA, High Lipids, HTN, Seizures Past Medical History (Other): Pancreatitis Surgical History: Cholecystectomy, , Hysterectomy MANAGER PRODUCT MARKETING History: No Pertinent MANAGER PRODUCT MARKETING History Family History Family History: Reviewed,noncontributory to illness Social History Smoker: Non-Smoker Alcohol: Denies ETOH Use Drugs: Denies Drug Use Lives In: Home Constitutional: denies: chills, diaphoresis, fatigue, fever, malaise, sweats, weakness, others EENTM: denies: blurred vision, double vision, ear bleeding, ear discharge, ear drainage, ear pain, ear ringing, eye pain, eye redness, hearing loss, mouth pain, mouth swelling, nasal discharge, nose bleeding, nose congestion, nose pain, photophobia, tearing, throat pain, throat swelling, voice changes, others Respiratory: reports: SOB at rest; denies: cough, hemoptysis, orthopnea, shortness of breath, SOB with excertion, stridor, wheezing, others Cardiovascular: reports: chest pain, dizzy spells, diaphoresis; denies: Dyspnea on exertion, edema, irregular heart beat, left arm pain, lightheadedness, palpitations, PND, syncope, others Gastrointestinal: denies: abdomen distended, abdominal pain, blood streaked bowels, constipated, diarrhea, dysphagia, difficulty swallowing, hematemesis, melena, nausea, poor appetite, poor fluid intake, rectal bleeding, rectal pain, vomiting, others Genitourinary: denies: abnormal vagina bleeding, burning, dyspareunia, dysuria, flank pain, frequency, hematuria, incontinence, pain, , vagina discha rge, urgency, others Neurological: denies: dizziness, fainting, headache, left sided numbness, left sided weakness, numbness, paresthesia, pre-existing deficit, right sided numbness, right sided weakness, seizure, speech problems, tingling, tremors, weakness, others Musculoskeletal: denies: back pain, gout, joint pain, joint swelling, muscle pain, muscle stiffness, neck pain, others Integumetry: denies: bruises, change in color, change in hair/nails, dryness, laceration, lesions, lumps, rash, wounds, others Allergic/Immunocompromised: denies: Difficulty Healing, Frequent Infections, Hives, Itching, others Hematologic/Lymphatic: denies: anemia, blood clots, easy bleeding, easy bruising, swollen glands, others Endocrine: denies: excessive hunger, excessive sweating, excessive thirst, excessive urination, flushing, intolerance to cold, intolerance to heat, unexplained weight gain, unexplained weight loss, others Psychiatric: denies: anxiety, bipolar disorder, depression, hopeless, panic disorder, schizophrenia, sleepless, suicidal, others Physical Exam General Appearance: No Apparent Distress, Normal HEENT: Normal ENT Inspection, Pharynx Normal, TMs Normal Neck: Full Range of Motion, Non-Tender, Normal, Normal Inspection Respiratory: Chest Non-Tender, Lungs Clear, No Accessory Muscle Use, No Respiratory Distress, Normal Breath Sounds Cardiovascular: No Edema, No JVD, No Murmur, No Gallop, Normal Peripheral Pulses, Regular Rate/Rhythm Breast Exam: Deferred Gastrointestinal: No Organomegaly, Non Tender, No Pulsatile Mass, Normal Bowel Sounds, Soft Genitalia: Deferred Pelvic: Deferred Rectal: Deferred Extremities: No calf tenderness, Normal capillary refill, Normal inspection, Normal range of motion, Non-tender, No pedal edema Musculoskeletal : Apperance: Normal Neurologic: Alert, technical solutions engineer II-XII nml as Tested, No Motor Deficits, Normal Affect, Normal Mood, No Sensory Deficits Cerebellar Function: Normal Reflexes: Normal Skin: Dry, Normal Color, Warm Lymphatic: No Adenopathy Was a procedure done? Was a procedure done?: No CP Differential Dx Differential Diagnosis: Angina, Anxiety / Panic Attack Differential Diagnosis: Angina, Chest Wall Pain, Costochondritis, Esophageal reflux/spasm, Gastritis, Myocardial Infarction X-Ray, Labs, Meds, VS Vital Signs Date Time Temp Pulse Resp B/P (MAP) Pulse Ox O2 Delivery O2 Flow Rate FiO2 03/22/24 02:28 98.2 65 18 138/83 (101) 95 98.2 03/22/24 00:46 72 03/22/24 00:45 98.9 73 12 142/87 (105) 95 98.9 03/22/24 00:45 73 12 95 Room Air* 0 21 03/22/24 00:31 98.7 77 18 164/114 (131) 98 03/22/24 00:24 67 Lab Test 03/22/24 01:24 03/22/24 00:52 03/22/24 00:30 Range/Units Troponin I High Sensitivity < 3 L < 3 L </=34 ng/L Urine Color Colorless Yellow Urine Clarity Clear Clear Urine pH 7.0 5.0-9.0 Urine Specific [place] 1.015 1.001-1.035 Urine Protein Negative Negative Urine Ketones Negative Negative Urine Blood Negative Negative /uL Urine Nitrite Negative Negative Urine Bilirubin Negative Negative Urine Urobilinogen Normal Negative mg/dL Urine Leukocyte Esterase Negative Negative /uL Urine RBC 1 0 - 4 /hpf Urine WBC 1 0 - 5 /hpf Urine Squamous Epithelial Cells Few <5 /hpf Urine Bacteria None seen None Seen /hpf Urine Glucose Normal Normal mg/dL White Blood Count 8.3 4.4-10.8 10^3/uL Red Blood Count 4.57 4.0-5.20 10^6/uL Hemoglobin 14.5 12.2-16.2 g/dL Hematocrit 43.3 36.0-46.0 % Mean Corpuscular Volume 94.8 80.0-100.0 fL Mean Corpuscular Hemoglobin 31.7 28.0-32.0 pg Mean Corpuscular Hemoglobin Concent 33.4 32.0-36.0 g/dL Red Cell Distribution Width 13.1 11.8-14.3 % Platelet Count 233 140-450 10^3/uL Mean Platelet Volume 8.4 6.9-10.8 fL Neutrophils (%) (Auto) 61.6 37.0-80.0 % Lymphocytes (%) (Auto) 29.2 10.0-50.0 % Monocytes (%) (Auto) 6.0 0.0-12.0 % Eosinophils (%) (Auto) 2.5 0.0-7.0 % Basophils (%) (Auto) 0.7 0.0-2.0 % Neutrophils # (Auto) 5.1 1.6-8.6 10 ^3/uL Lymphocytes # (Auto) 2.4 0.4-5.4 10 ^3/uL Monocytes # (Auto) 0.5 0-1.3 10 ^3/uL Eosinophils # (Auto) 0.2 0-0.8 10 ^3/uL Basophils # (Auto) 0.1 0-0.2 10 ^3/uL Nucleated Red Blood Cells 0.1 % Prothrombin Time 10.3 9.3-11.8 sec Prothrombin Time INR 0.97 0.9-1.15 Activated Partial Thromboplast Time 24.8 24.5-34.5 SEC Sodium Level 140 136-145 mmol/L Potassium Level 3.8 3.5-5.1 mmol/L Chloride Level 105 98-107 mmol/L Carbon Dioxide Level 26 20-31 mmol/L Anion Gap 9 5-15 Blood Urea Nitrogen 21 9-23 mg/dL Creatinine 1.02 0.550-1.02 mg/dL Glomerular Filtration Rate Calc 65 >90 mL/min BUN/Creatinine Ratio 20.6 H 10.0-20.0 Serum Glucose 95 74-106 mg/dL Calcium Level 9.5 8.7-10.4 mg/dL Magnesium Level 2.1 1.6-2.6 mg/dL Total Bilirubin 0.2 0.2-1.0 mg/dL Aspartate Amino Transferase (AST) 10 L 13-40 U/L Alanine Aminotransferase (ALT) 14 7-40 U/L Alkaline Phosphatase 152 H 46-116 U/L B-Type Natriuretic Peptide 3.39 0-100 pg/mL Total Protein 7.0 5.7-8.2 g/dL Albumin 4.1 3.2-4.8 g/dL CHEST RADIOGRAPH Indication: chest pain Technique: Single frontal view of the chest was obtained Comparison: XY CHEST PORTABLE on DOS: 08/14/23, XY CHEST PORTABLE on DOS: 06/18/22 Findings/ IMPRESSION: Limited evaluation due to patient positioning. No active cardiopulmonary disease. Time of 1ST Reevaluation: 00:38 Reevaluation 1ST: Unchanged Time of 2ND Reevaluation: 01:30 Reevaluation 2ND: Improved Patient Education/Counseling: Diagnosis, Treatment Family Education/Counseling: No Family Present Departure 1 Departure Time of Disposition: 01:30 Impression: Primary Impression: Atypical chest pain Disposition: 01 HOME / SELF CARE / HOMELESS Condition: Stable Discharged With: Self Critical Care Note Critical Care Time?: Yes (35 min-critical care time only) Stability Stability form required: No Heart Score Heart Score: Heart Score Response (Comments) Value History Moderate Suspicious 1 EKG Repolarization Disturb 1 Age 45-64 1 Risk Factors >3 or Hx ASHD 2 Troponin Normal limit 0 Total 5 I personally scribed for MAXINE SNOW MD ([email or web address]) on 03/22/24 at 00:41. Electronically submitted by Brent Najera ([email or web address] I personally scribed for MAXINE SNOW MD ([email or web address]) on 03/22/24 at 01:40. Electronically submitted by Brent Najera ([email or web address]). MAXINE SNOW MD Mar 22, 2024 00:41
[2024-03-22 00:43] LABS: Basophils # (auto) 0.1 10 ^3/uL (0-0.2); Basophils % (auto) 0.7 % (0.0-2.0); Eosinophils # (auto) 0.2 10 ^3/uL (0-0.8); Eosinophils % (auto) 2.5 % (0.0-7.0); Hematocrit 43.3 % (36.0-46.0); Hemoglobin 14.5 g/dL (12.2-16.2); Lymphocytes # (auto) 2.4 10 ^3/uL (0.4-5.4); Lymphocytes % (auto) 29.2 % (10.0-50.0); Mean Corpuscular Hemoglobin 31.7 pg (28.0-32.0); Mean Corpuscular Hgb Conc. 33.4 g/dL (32.0-36.0); Mean Corpuscular Volume 94.8 fL (80.0-100.0); Monocytes # (auto) 0.5 10 ^3/uL (0-1.3); Neutrophils # (auto) 5.1 10 ^3/uL (1.6-8.6); Neutrophils % (auto) 61.6 % (37.0-80.0); Nucleated Red Blood Cells % 0.1 %; Platelet Count (auto) 233 10^3/uL (140-450); Red Blood Cells 4.57 10^6/uL (4.0-5.20); Red Cell Distribution Width 13.1 % (11.8-14.3); White Blood Cell 8.3 10^3/uL (4.4-10.8)
[2024-03-22 00:45] VITALS: PULSE 73; RESP 12; O2SAT 95
[2024-03-22 00:58] LABS: Urine Bacteria None Seen /hpf (None Seen)
[2024-03-22 00:58] LABS: INR 0.97 (0.9-1.15); Partial Thromboplastin Time 24.8 SEC (24.5-34.5); Prothrombin Time 10.3 sec (9.3-11.8)
[2024-03-22 01:01] LABS: Alanine Aminotransferase 14 U/L (7-40); Albumin 4.1 g/dL (3.2-4.8); Alkaline Phosphatase 152 U/L (46-116); Anion Gap 9 (5-15); Aspartate Aminotransferase 10 U/L (13-40); BUN/Creatinine Ratio 20.6 (10.0-20.0); Blood Urea Nitrogen 21 mg/dL (9-23); Calcium 9.5 mg/dL (8.7-10.4); Carbon Dioxide 26 mmol/L (20-31); Chloride 105 mmol/L (98-107); Glucose 95 mg/dL (74-106); Magnesium 2.1 mg/dL (1.6-2.6); Potassium 3.8 mmol/L (3.5-5.1); Sodium 140 mmol/L (136-145)
[2024-03-22 01:04] LABS: Bilirubin, Total 0.2 mg/dL (0.2-1.0)
--- NOTE | 2024-03-22 01:09 | DVH ---
CHEST RADIOGRAPH Indication: chest pain Technique: Single frontal view of the chest was obtained Comparison: XY CHEST PORTABLE on DOS: 08/14/23, XY CHEST PORTABLE on DOS: 06/18/22 Findings/ IMPRESSION: Limited evaluation due to patient positioning. No active cardiopulmonary disease.
[2024-03-22 01:13] LABS: Urine Blood Negative /uL (Negative); Urine Clarity Clear (Clear); Urine Color Colorless (Yellow); Urine Protein, UAD Negative (Negative); Urine Specific Gravity 1.015 (1.001-1.035); Urine Urobilinogen Normal (Negative); Urine WBC 1 /hpf (0 - 5)
[2024-03-22 02:28] VITALS: BP 138/83; PULSE 65; RESP 18; TEMP 98.2; O2SAT 95
--- NOTE | 2024-03-22 06:32 | ECG ---
[facility] Test Date: 2024-03-22 Test Time: 00:24:55 Pat Name: ALLA SIFUENTES Department: ER Room: Gender: F Applications Programmer: CHEYANNE : 1970 Requested By: MAXINE SNOW Order Number: [id number] Reading MD: Darrell Chance Measurements Intervals [place] Rate: 67 P: 26 OH: 155 QRS: -8 QRSD: 94 T: 30 QT: 417 QTc: 441 Interpretive Statements Sinus rhythm Probable left atrial enlargement Left ventricular hypertrophy Electronically Signed On 03-27-2024 16:06:49 PST by Darrell Chance Please click the below link to view image of tracing.
== END 2024-03-22 03:30 | disposition home or self-care (01) ==
LOC: EDUNIT# 00:20 → EDBD 00:20 → ER 00:20
DX: R07.89 Other chest pain (principal); R42 Dizziness and giddiness; I10 Essential (primary) hypertension; E78.5 Hyperlipidemia, unspecified; J45.909 Unspecified asthma, uncomplicated; Z79.52 Long term (current) use of systemic steroids; Z79.82 Long term (current) use of aspirin; Z79.899 Other long term (current) drug therapy; Z86.73 Personal history of transient ischemic attack (TIA), and cerebral infarction without residual deficits; Z88.0 Allergy status to penicillin; Z88.1 Allergy status to other antibiotic agents; Z90.49 Acquired absence of other specified parts of digestive tract; Z90.710 Acquired absence of both cervix and uterus
CPT/HCPCS: 36415; 71045; 80053; 81001; 83735; 83880; 84484; 85025; 85610; 85730; 93005

== ENCOUNTER 2024-06-04 13:09 | Emergency (ER) | payer OTHER, MEDICAID ==
[~2024-06-04] VITALS: Ht 162.6 cm; Wt 81.8 kg
--- NOTE | 2024-06-04 13:53 | ECG ---
[facility] Test Date: 2024-06-04 Test Time: 13:26:21 Pat Name: ALLA SIFUENTES Department: ER Room: Gender: F Ortho Rn: MELANI : 1970 Requested By: KEVYN VÁSQUEZ Order Number: [id number] Reading MD: Darrell Chance Measurements Intervals [place] Rate: 73 P: 46 VT: 149 QRS: 4 QRSD: 95 T: 59 QT: 393 QTc: 433 Interpretive Statements Sinus rhythm Left ventricular hypertrophy ST elev, probable normal early repol pattern Artifact in lead(s) II,aVR,aVF,V2,V5,V6 Electronically Signed On 06-06-2024 11:57:09 PST by Darrell Chance Please click the below link to view image of tracing.
--- NOTE | 2024-06-04 14:59 | ED.PDOC ---
GI ASSESSMENT HPI Comments 53 year old female presents to the ED with chief complaint of abdominal pain. Patient reports that she has been experiencing abdominal pain with associated headache, right sided chest pain, and diarrhea since last night. Patient relays that she had similar right sided chest pain in the past. Patient states her at home had pneumonia recently. Patient denies any N/V, dizziness, fever, chills, or SOB. Chief Complaint: Flu like Time Seen by MD: 14:51 Primary Care Provider: [facility] Reviewed Notes: Nurses Notes, Medications, Allergies Allergies: Coded Allergies: Erythromycin (Verified Allergy, Mild, 11/02/10) Penicillins (Verified Allergy, Mild, 08/19/21) Home Meds Active Scripts Ondansetron Odt 4MG Tab (ZOFRAN PO) 4 Mg Tb, 4 MG PO Q6HPRN PRN, #20 TAB ODT TAB-DISSOLVE IN MOUTH, THEN SWALLOW Prov:KEZIA WHITAKER PAC 08/14/23 Prednisone (Prednisone) 20 Mg Tab, 20 MG PO BID for 5 Days, #10 MG Prov:SASCHA SANTOS MD 09/22/21 Albuterol Sulfate (Albuterol Sulfate Hfa) 108 Mcg/Act Aer, 108 MCG IN TID, #1 AER Prov:SASCHA SANTOS MD 09/22/21 Azithromycin (Zithromax) 500 Mg Tab, 1 TAB PO DAILY, #5 TAB Prov:SASCHA SANTOS MD 09/22/21 Hydrocodone-Acetaminophen (Hydrocodone Bitartrate/AC 5-325 mg) 1 Tab Tab, 1 TAB PO Q8HR PRN, #30 TAB Prov:LUBA DAVILA MD 06/03/21 Fluoxetine HCl (Fluoxetine) 60 Mg Tab, 20 MG PO DAILY, #90 TAB Prov:LUBA DAVILA MD 06/03/21 Aspirin (ASPIRIN 81) 81 Mg Tab, 81 MG OR DAILY, #90 TAB Prov:LUBA DAVILA MD 06/03/21 Reported Medications Ibuprofen (Ibuprofen) 600 Mg Tab, 600 MG PO, TAB 08/16/21 Acetaminophen (Apap) 325 Mg Tab, 325 MG PO, TAB 08/16/21 Hydroxyzine Pamoate (Vistaril) 25 Mg Cap, 25 MG PO HS, CAP 08/16/21 Topiramate (Topiramate) 100 Mg Tab, 100 MG PO BID, TAB 08/16/21 Buspirone Hcl (Buspirone Hcl) 5 Mg Tab, 10 MG PO BID, TAB 08/16/21 Benztropine Mesylate (Benztropine Mesylate) 1 Mg Tab, 1 MG PO, TAB 08/16/21 Oxcarbazepine (Trileptal) 600 Mg Tab, 300 MG PO BID, TAB 08/16/21 Clonazepam (KlonoPIN TABLET) 0.5 Mg Tb, 1 TAB PO DAILY, #30 TAB 05/31/21 Triamterene & Hydrochlorothiaz (Maxzide-25) Tab, 1 TAB PO DAILY, #30 TAB 5 Refills 05/31/21 Zolpidem Tartrate (Zolpidem Tartrate) 10 Mg Tab, 1 TAB PO QPM, #30 TAB 2 Refills 05/31/21 Estradiol (Estradiol) 1 Mg Tab, 1 MG PO DAILY, MG 05/31/21 Lamotrigine (Lamotrigine) 100 Mg Tab, 1 TAB PO BID, #60 TAB 05/31/21 Lurasidone Hydrochloride (LATUDA) Unknown Strength Tab, PO QPM, #30 TAB 05/31/21 Lisinopril (Lisinopril) 5 Mg Tab, 5 MG PO BID for 30 Days, MG 05/31/21 Information Source: Patient Mode of Arrival: Ambulatory Timing: Days Duration: Since onset Prehospital treatment: None Quality: Aching Vomitus: None Stool: Loose, Watery Severity: Moderate Recent: None Recent Hx of: None Pain Location: Diffuse Modifying Factors: Nothing Associated sign and symptoms: Diarrhea, Abdominal Pain Past Medical History PAST MEDICAL HISTORY: Asthma, CVA, High Lipids, HTN, Seizures Surgical History: Cholecystectomy, , Hysterectomy SOLVENT MIXER History: No Pertinent SOLVENT MIXER History Family History Family History: Reviewed,noncontributory to illness Social History Smoker: Non-Smoker Alcohol: Denies ETOH Use Drugs: Denies Drug Use Lives In: Home Constitutional: denies: chills, diaphoresis, fatigue, fever, malaise, sweats, weakness, others EENTM: denies: blurred vision, double vision, ear bleeding, ear discharge, ear drainage, ear pain, ear ringing, eye pain, eye redness, hearing loss, mouth pain, mouth swelling, nasal discharge, nose bleeding, nose congestion, nose pain, photophobia, tearing, throat pain, throat swelling, voice changes, others Respiratory: denies: cough, hemoptysis, orthopnea, SOB at rest, shortness of breath, SOB with excertion, stridor, wheezing, others Cardiovascular: reports: chest pain; denies: dizzy spells, diaphoresis, Dyspnea on exertion, edema, irregular heart beat, left arm pain, lightheadedness, palpitations, PND, syncope, others Gastrointestinal: reports: abdominal pain, diarrhea; denies: abdomen distended, blood streaked bowels, constipated, dysphagia, difficulty swallowing, hematemesis, melena, nausea, poor appetite, poor fluid intake, rectal bleeding, rectal pain, vomiting, others Genitourinary: denies: abnormal vagina bleeding, burning, dyspareunia, dysuria, flank pain, frequency, hematuria, incontinence, pain, , vagina discharge, urgency, others Neurological: reports: headache; denies: dizziness, fainting, left sided numbness, left sided weakness, numbness, paresthesia, pre-existing deficit, right sided numbness, right sided weakness, seizure, speech problems, tingling, tremors, weakness, others Musculoskeletal: denies: back pain, gout, joint pain, joint swelling, muscle pain, muscle stiffness, neck pain, others Integumetry: denies: bruises, change in color, change in hair/nails, dryness, laceration, lesions, lumps, rash, wounds, others Allergic/Immunocompromised: denies: Difficulty Healing, Frequent Infections, Hives, Itching, others Hematologic/Lymphatic: denies: anemia, blood clots, easy bleeding, easy bruising, swollen glands, others Endocrine: denies: excessive hunger, excessive sweating, excessive thirst, excessive urination, flushing, intolerance to cold, intolerance to heat, unexplained weight gain, unexplained weight loss, others Psychiatric: denies: anxiety, bipolar disorder, depression, hopeless, panic disorder, schizophrenia, sleepless, suicidal, others All Other Systems: Reviewed and Negative Physical Exam General Appearance: No Apparent Distress, Normal HEENT: Normal ENT Inspection, PERRL/EOMI Neck: Full Range of Motion, Non-Tender, Normal, Normal Inspection Respiratory: Chest Non-Tender, Lungs Clear, No Accessory Muscle Use, No Respiratory Distress, Normal Breath Sounds Cardiovascular: No Edema, No JVD, No Murmur, No Gallop, Normal Peripheral Pulses, Regular Rate/Rhythm Breast Exam: Deferred Gastrointestinal: No Organomegaly, Non Tender, No Pulsatile Mass, Normal Bowel Sounds, Soft Genitalia: Deferred Pelvic: Deferred Rectal: Deferred Extremities: No calf tenderness, Normal capillary refill, Normal inspection, Normal range of motion, Non-tender, No pedal edema Musculoskeletal : Apperance: Normal Neurologic: Alert, funeral pre need consultant II-XII nml as Tested, No Motor Deficits, Normal Affect, Normal Mood, No Sensory Deficits Cerebellar Function: Normal Reflexes: Normal Skin: Dry, Normal Color, Warm Lymphatic: No Adenopathy Was a procedure done? Was a procedure done?: No GI differential Dx Differential Diagnosis: Constipation, Gastritis/PUD, Gastroenteritis, UTI, Electrolyte Imbalance, Food Poisoning, Hypovolemia, Malnutrition X-Ray, Labs, Meds, VS Vital Signs Date Time Temp Pulse Resp B/P (MAP) Pulse Ox O2 Delivery O2 Flow Rate FiO2 06/04/24 13:26 73 06/04/24 13:24 98.5 76 18 166/98 (120) 98 Lab Test 06/04/24 15:00 Range/Units White Blood Count 6.8 4.4-10.8 10^3/uL Red Blood Count 5.14 4.0-5.20 10^6/uL Hemoglobin 15.7 12.2-16.2 g/dL Hematocrit 47.6 H 36.0-46.0 % Mean Corpuscular Volume 92.6 80.0-100.0 fL Mean Corpuscular Hemoglobin 30.6 28.0-32.0 pg Mean Corpuscular Hemoglobin Concent 33.1 32.0-36.0 g/dL Red Cell Distribution Width 13.0 11.8-14.3 % Platelet Count 268 140-450 10^3/uL Mean Platelet Volume 8.5 6.9-10.8 fL Neutrophils (%) (Auto) 60.0 37.0-80.0 % Lymphocytes (%) (Auto) 31.2 10.0-50.0 % Monocytes (%) (Auto) 7.0 0.0-12.0 % Eosinophils (%) (Auto) 0.8 0.0-7.0 % Basophils (%) (Auto) 1.0 0.0-2.0 % Neutrophils # (Auto) 4.1 1.6-8.6 10 ^3/uL Lymphocytes # (Auto) 2.1 0.4-5.4 10 ^3/uL Monocytes # (Auto) 0.5 0-1.3 10 ^3/uL Eosinophils # (Auto) 0.1 0-0.8 10 ^3/uL Basophils # (Auto) 0.1 0-0.2 10 ^3/uL Nucleated Red Blood Cells 0.1 % Sodium Level 138 136-145 mmol/L Potassium Level 4.1 3.5-5.1 mmol/L Chloride Level 103 98-107 mmol/L Carbon Dioxide Level 31 20-31 mmol/L Anion Gap 4 L 5-15 Blood Urea Nitrogen 9 9-23 mg/dL Creatinine 0.69 0.550-1.02 mg/dL Glomerular Filtration Rate Calc 103 >90 mL/min BUN/Creatinine Ratio 13.0 10.0-20.0 Serum Glucose 80 74-106 mg/dL Calcium Level 9.9 8.7-10.4 mg/dL Troponin I High Sensitivity < 3 L </=34 ng/L Chest XR: FINDINGS: Lines and Tubes: None Lungs: Clear Pleura: No effusion. No pneumothorax. Cardiomediastinal contours: Unremarkable Bones: Unremarkable IMPRESSION: No acute disease. Images Reviewed?: Images reviewed and evaluated by me Time of 1ST Reevaluation: 15:51 Reevaluation 1ST: Unchanged Patient Education/Counseling: Diagnosis, Treatment Family Education/Counseling: No Family Present Additional Information I reviewed the following notes from patient's past medical encounters: 03/22/24 for atypical chest pain The following tests were ordered, and results were reviewed by me: CBC, BMP, Troponin, Flu, COVID-19, Chest XR, EKG I reviewed and agreed with the following test results read by other providers: Chest XR Additional Information was gathered from interviewing the following independent historians: None I discussed treatment and results with medical personnel. Departure 1 Departure Time of Disposition: 16:14 (Patient presented with chest pain , nausea, and flu-like symptoms that was concerning for possible STEMI, ACS, PE, Pneumonia, Muscle Strain, COPD, Dissection. Data: 1. I ordered and reviewed the result of at least 3 labs including a CBC, BMP, and Troponin. 2. I independently interpreted the following tests: EKG which shows normal sinus rhythm and Chest X-ray which shows a benign chest.Risk:This patient presented with a high risk of morbidity due to further diagnostic testing or treatment and may suffer from an acute cardiac or respiratory disorder. After review of all the data patient is unlikely to have a pe , dissection, and is low risk for acs. Patient is stable at this time.Workup so far is benign and patient will be discharged with outpatient followup. ) Impression: Primary Impression: Acute chest pain Additional Impression: Viral syndrome Disposition: HOME / SELF CARE / HOMELESS Condition: Stable Additional Instructions: You presented today with chest pain. Your workup today was benign including labs, troponin, EKG, chest x-ray. Your pain may be from musculoskeletal strain, acid reflux, anxiety, or many other factors. You likely have a viral illness. It is important to stay well rested and well hydrated. You can take Tylenol and Motrin as needed for pain and fever. For a sore throat you can drink warm tea with honey. You can take [id number] pseudoephedrine for nasal congestion. He should follow up with your regular doctor within 1 week to ensure you are doing better. If your symptoms worsen or you have any other concerns please return to the emergency room. Discharged With: Self Critical Care Note Critical Care Time?: No Stability Stability form required: No Heart Score Heart Score: Heart Score Response (Comments) Value History N/A 0 EKG N/A 0 Age N/A 0 Risk Factors N/A 0 Troponin N/A 0 Total 0 I personally scribed for KEVYN VÁSQUEZ MD ([email or web address]) on 06/04/24 at 14:59. Electronically submitted by Shashank Chapman ([email or web address]). I personally scribed for KEVYN VÁSQUEZ MD ([email or web address]) on 06/04/24 at 15:40. Electronically submitted by Shashank Chapman ([email or web address]). KEVYN VÁSQUEZ MD Jun 04, 2024 14:59
[2024-06-04 15:09] LABS: Basophils # (auto) 0.1 10 ^3/uL (0-0.2); Eosinophils # (auto) 0.1 10 ^3/uL (0-0.8); Eosinophils % (auto) 0.8 % (0.0-7.0); Hematocrit 47.6 % (36.0-46.0); Hemoglobin 15.7 g/dL (12.2-16.2); Lymphocytes # (auto) 2.1 10 ^3/uL (0.4-5.4); Lymphocytes % (auto) 31.2 % (10.0-50.0); Mean Corpuscular Hemoglobin 30.6 pg (28.0-32.0); Mean Corpuscular Hgb Conc. 33.1 g/dL (32.0-36.0); Mean Corpuscular Volume 92.6 fL (80.0-100.0); Monocytes # (auto) 0.5 10 ^3/uL (0-1.3); Neutrophils # (auto) 4.1 10 ^3/uL (1.6-8.6); Nucleated Red Blood Cells % 0.1 %; Platelet Count (auto) 268 10^3/uL (140-450); Red Blood Cells 5.14 10^6/uL (4.0-5.20); White Blood Cell 6.8 10^3/uL (4.4-10.8)
--- NOTE | 2024-06-04 15:15 | DVH ---
CHEST RADIOGRAPH Indication: chest pain Technique: Single frontal view of the chest was obtained COMPARISON: None FINDINGS: Lines and Tubes: None Lungs: Clear Pleura: No effusion. No pneumothorax. Cardiomediastinal contours: Unremarkable Bones: Unremarkable IMPRESSION: No acute disease.
[2024-06-04 15:47] LABS: Chloride 103 mmol/L (98-107); Potassium 4.1 mmol/L (3.5-5.1); Sodium 138 mmol/L (136-145)
[2024-06-04 15:48] LABS: Anion Gap 4 (5-15)
[2024-06-04 15:49] LABS: Calcium 9.9 mg/dL (8.7-10.4)
[2024-06-04 15:54] LABS: Blood Urea Nitrogen 9 mg/dL (9-23); Glucose 80 mg/dL (74-106)
[2024-06-04 15:55] LABS: Carbon Dioxide 31 mmol/L (20-31)
--- NOTE | 2024-06-04 16:29 | ECG ---
[facility] Test Date: 2024-06-04 Test Time: 16:26:24 Pat Name: ALLA SIFUENTES Department: ER Room: Gender: F Subacute Nurse: LAUREN : 1970 Requested By: KEVYN VÁSQUEZ Order Number: [id number] Reading MD: Darrell Chance Measurements Intervals Alexander Rate: 77 P: 47 KS: 147 QRS: 6 QRSD: 90 T: 22 QT: 408 QTc: 462 Interpretive Statements Sinus rhythm Abnormal R-wave progression, early transition Left ventricular hypertrophy Electronically Signed On 06-06-2024 11:57:50 PST by Darrell Chance Please click the below link to view image of tracing.
[2024-06-04 17:05] VITALS: BP 100/79; PULSE 81; RESP 18; TEMP 98; O2SAT 97
== END 2024-06-04 17:08 | disposition home or self-care (01) ==
LOC: ER 13:09 → EDBD 13:09 → ER 17:05
DX: R07.89 Other chest pain (principal); B34.9 Viral infection, unspecified; J45.909 Unspecified asthma, uncomplicated; I10 Essential (primary) hypertension; E78.5 Hyperlipidemia, unspecified; R51.9 Headache, unspecified; R19.7 Diarrhea, unspecified; Z90.710 Acquired absence of both cervix and uterus; Z90.49 Acquired absence of other specified parts of digestive tract; Z86.73 Personal history of transient ischemic attack (TIA), and cerebral infarction without residual deficits; Z88.0 Allergy status to penicillin; Z88.1 Allergy status to other antibiotic agents
CPT/HCPCS: 36415; 71045; 80048; 84484; 85025; 93005

== ENCOUNTER 2024-07-15 14:09 | Emergency (ER) | payer OTHER, MEDICAID ==
[~2024-07-15] VITALS: Ht 167.6 cm; Wt 77.0 kg
[2024-07-15] MEDS ORDERED: CEPH500C PO (15:47)
[2024-07-15] MEDS ORDERED: HYDR-4924 PO (15:47)
--- NOTE | 2024-07-15 15:47 | ED.PDOC ---
History of Present Illness(SKN HPI Comments 53 year old presents for insect bite Onset: 1 week ago Went to and was rx cipo with some improvement Denies f/c/n/v/d Chief Complaint: Insect Bite Time Seen by MD: 14:20 Primary Care Provider: YOANDY History of Present Illness: Nurses Notes, Medications, Allergies Allergies: Coded Allergies: Erythromycin (Verified Allergy, Mild, 11/02/10) Penicillins (Verified Allergy, Mild, 08/19/21) Home Meds Active Scripts Hydroxyzine HCl (Hydroxyzine Hydrochloride) 25 Mg Tab, 25 MG PO TID for 10 Days, #30 TAB 0 Refills Prov:JEOVANY VARELA SORORITY MOTHER 07/15/24 Cephalexin Monohydrate (Cephalexin) 500 Mg Cap, 1 CAP PO QID for 7 Days, #28 CAP 0 Refills Prov:JEOVANY VARELA SORORITY MOTHER 07/15/24 Ondansetron Odt 4MG Tab (ZOFRAN PO) 4 Mg Tb, 4 MG PO Q6HPRN PRN, #20 TAB ODT TAB-DISSOLVE IN MOUTH, THEN SWALLOW Prov:KEZIA WHITAKER PAC 08/14/23 Prednisone (Prednisone) 20 Mg Tab, 20 MG PO BID for 5 Days, #10 MG Prov:SASCHA SANTOS MD 09/22/21 Albuterol Sulfate (Albuterol Sulfate Hfa) 108 Mcg/Act Aer, 108 MCG IN TID, #1 AER Prov:SASCHA SANTOS MD 09/22/21 Azithromycin (Zithromax) 500 Mg Tab, 1 TAB PO DAILY, #5 TAB Prov:SASCHA SANTOS MD 09/22/21 Hydrocodone-Acetaminophen (Hydrocodone Bitartrate/AC 5-325 mg) 1 Tab Tab, 1 TAB PO Q8HR PRN, #30 TAB Prov:LUBA DAVILA MD 06/03/21 Fluoxetine HCl (Fluoxetine) 60 Mg Tab, 20 MG PO DAILY, #90 TAB Prov:LUBA DAVILA MD 06/03/21 Aspirin (ASPIRIN 81) 81 Mg Tab, 81 MG OR DAILY, #90 TAB Prov:LUBA DAVILA MD 06/03/21 Reported Medications Ibuprofen (Ibuprofen) 600 Mg Tab, 600 MG PO, TAB 08/16/21 Acetaminophen (Apap) 325 Mg Tab, 325 MG PO, TAB 08/16/21 Hydroxyzine Pamoate (Vistaril) 25 Mg Cap, 25 MG PO HS, CAP 08/16/21 Topiramate (Topiramate) 100 Mg Tab, 100 MG PO BID, TAB 08/16/21 Buspirone Hcl (Buspirone Hcl) 5 Mg Tab, 10 MG PO BID, TAB 08/16/21 Benztropine Mesylate (Benztropine Mesylate) 1 Mg Tab, 1 MG PO, TAB 08/16/21 Oxcarbazepine (Trileptal) 600 Mg Tab, 300 MG PO BID, TAB 08/16/21 Clonazepam (KlonoPIN TABLET) 0.5 Mg Tb, 1 TAB PO DAILY, #30 TAB 05/31/21 Triamterene & Hydrochlorothiaz (Maxzide-25) Tab, 1 TAB PO DAILY, #30 TAB 5 Refills 05/31/21 Zolpidem Tartrate (Zolpidem Tartrate) 10 Mg Tab, 1 TAB PO QPM, #30 TAB 2 Refills 05/31/21 Estradiol (Estradiol) 1 Mg Tab, 1 MG PO DAILY, MG 05/31/21 Lamotrigine (Lamotrigine) 100 Mg Tab, 1 TAB PO BID, #60 TAB 05/31/21 Lurasidone Hydrochloride (LATUDA) Unknown Strength Tab, PO QPM, #30 TAB 05/31/21 Lisinopril (Lisinopril) 5 Mg Tab, 5 MG PO BID for 30 Days, MG 05/31/21 Information Source: Patient Mode of Arrival: Ambulatory Past Medical History PAST MEDICAL HISTORY: Asthma, CVA, High Lipids, HTN, Seizures Surgical History: Cholecystectomy, , Hysterectomy SENIOR STRATEGY MANAGER History: No Pertinent SENIOR STRATEGY MANAGER History Family History Family History: Reviewed,noncontributory to illness Social History Smoker: Non-Smoker Alcohol: Denies ETOH Use Drugs: Denies Drug Use Lives In: Home All Other Systems: Reviewed and Negative (per hpi) Physical Exam General Appearance: No Apparent Distress, Normal HEENT: Normal ENT Inspection, Pharynx Normal, TMs Normal Neck: Full Range of Motion, Non-Tender, Normal, Normal Inspection Respiratory: Chest Non-Tender, Lungs Clear, No Accessory Muscle Use, No Res piratory Distress, Normal Breath Sounds Cardiovascular: No Edema, No JVD, No Murmur, No Gallop, Normal Peripheral Pulses, Regular Rate/Rhythm Breast Exam: Deferred Gastrointestinal: No Organomegaly, Non Tender, No Pulsatile Mass, Normal Bowel Sounds, Soft Genitalia: Deferred Pelvic: Deferred Rectal: Deferred Extremities: No calf tenderness, Normal capillary refill, Normal inspection, Normal range of motion, Non-tender, No pedal edema Musculoskeletal : Apperance: Normal Neurologic: Alert, e learning manager II-XII nml as Tested, No Motor Deficits, Normal Affect, Normal Mood, No Sensory Deficits Cerebellar Function: Normal Reflexes: Normal Skin: Dry, Normal Color, Warm Lymphatic: No Adenopathy Was a procedure done? Was a procedure done?: No Differential Diagnosis (INTG) Differential Diagnosis: Other X-Ray, Labs, Meds, VS Vital Signs Date Time Temp Pulse Resp B/P (MAP) Pulse Ox O2 Delivery O2 Flow Rate FiO2 07/15/24 15:49 65 18 95 Room Air 07/15/24 15:49 98.8 65 18 159/93 (115) 95 98.8 07/15/24 14:12 98.8 65 18 159/93 (115) 95 98.8 X-Ray, Labs, Meds, VS Comment On reevaluation, patient had symptomatic improvement. Patient is stable for discharge at this time. External notes reviewed. Test results and diagnostic imaging interpreted. All diagnostic findings, discharge care, education and instructions provided Follow-up with PCP in 2 to 3 days Patient verbalized understanding and agreed to treatment plan Vital signs stable, afebrile, no acute distress noted Patient ambulatory with strong steady gait Advised to return precautions for any new or worsening symptoms, return to ER i mmediately for re-evaluation Patient is aware that the purpose of this visit was for an acute medical emergency requiring emergent stabilization. Chronic conditions, including malignancies have not been ruled out. Patient is instructed to follow up with PCP as directed and discharge instructions for continued care and workup. If unable to arrange follow-up, patient is to return to the emergency department for reassessment. Patient (parent or legal guardian if applicable) was given verbal and written discharge instructions and acknowledges understanding. Time of 1ST Reevaluation: 15:30 Reevaluation 1ST: Improved Patient Education/Counseling: Diagnosis, Treatment Family Education/Counseling: Diagnosis, Treatment Departure 1 Departure Time of Disposition: 15:46 Impression: Primary Impression: Insect bite Qualified Codes: S80.869A - Insect bite (nonvenomous), unspecified lower leg, initial encounter; W57.XXXA - Bitten or stung by nonvenomous insect and other nonvenomous arthropods, initial encounter Disposition: HOME / SELF CARE / HOMELESS Condition: Stable e-Prescriptions Hydroxyzine HCl (Hydroxyzine Hydrochloride) 25 Mg Tab 25 MG PO TID for 10 Days, #30 TAB 0 Refills Prov: JEOVANY VARELA SORORITY MOTHER 07/15/24 Cephalexin Monohydrate (Cephalexin) 500 Mg Cap 1 CAP PO QID for 7 Days, #28 CAP 0 Refills Prov: JEOVANY VARELA SORORITY MOTHER 07/15/24 Critical Care Note Critical Care Time?: No Stability Stability form required: No Heart Score Heart Score: Heart Score Response (Comments) Value History N/A 0 EKG N/A 0 Age N/A 0 Risk Factors N/A 0 Troponin N/A 0 Total 0 JEOVANY VARELA SORORITY MOTHER Jul 15, 2024 15:47
[2024-07-15 15:49] VITALS: BP 159/93; PULSE 65; RESP 18; TEMP 98.8; O2SAT 95
== END 2024-07-15 15:56 | disposition home or self-care (01) ==
LOC: ER 14:09
DX: T14.8XXA Other injury of unspecified body region, initial encounter (principal); J45.909 Unspecified asthma, uncomplicated; E78.5 Hyperlipidemia, unspecified; I10 Essential (primary) hypertension; Z86.73 Personal history of transient ischemic attack (TIA), and cerebral infarction without residual deficits; Z79.899 Other long term (current) drug therapy; Z79.82 Long term (current) use of aspirin; Z79.52 Long term (current) use of systemic steroids; Z90.710 Acquired absence of both cervix and uterus; Z90.49 Acquired absence of other specified parts of digestive tract; Z88.1 Allergy status to other antibiotic agents; Z88.0 Allergy status to penicillin; W57.XXXA Bitten or stung by nonvenomous insect and other nonvenomous arthropods, initial encounter

== ENCOUNTER 2024-11-09 15:10 | Emergency (ER) | payer OTHER, MEDICAID ==
[~2024-11-09] VITALS: Ht 167.6 cm; Wt 81.2 kg
[~2024-11-09 15:10] MED LIST changes: +CEPH500C PO; +HYDR-4924 PO
[2024-11-09] MEDS: HYDROcodone-ACET 5/325MG TAB PO ONE ×2 (16:52→20:04)
--- NOTE | 2024-11-09 16:52 | DVH ---
X-ray left ankle Technique: AP lateral and oblique views REASON FOR EXAM: left ankle pain FINDINGS: No fractures or dislocations. No erosions or periosteal reaction. Articular surfaces are sm ooth. IMPRESSION: 1. No acute bony pathology
--- NOTE | 2024-11-09 16:52 | DVH ---
X-ray left foreleg Technique: AP lateral and oblique views REASON FOR EXAM: left oliveira pain FINDINGS: No fractures or dislocations. No erosions or periosteal reaction. Articular surfaces are sm ooth. IMPRESSION: 1. No acute bony pathology
--- NOTE | 2024-11-09 18:49 | ED.PDOC ---
History of Present Illness HPI Comments 54 y/o F present with c/c left leg pain s/p mechanical fall and injury. Patient reports slipping forward when going down the last 4 steps of her stairway, earlier, today. No LOC. Denies any additional injuries or acute associated symptoms, such as dizziness, weakness, or headache. Chief Complaint: Fall Injury Time Seen by MD: 16:10 Primary Care Provider: YOANDY Reviewed Notes: Nurses Notes, Medications, Allergies Allergies: Coded Allergies: Erythromycin (Verified Allergy, Mild, 11/02/10) Penicillins (Verified Allergy, Mild, 08/19/21) Home Meds Active Scripts Hydroxyzine HCl (Hydroxyzine Hydrochloride) 25 Mg Tab, 25 MG PO TID for 10 Days, #30 TAB 0 Refills Prov:JEOVANY VARELA SINGLE END SEWER 07/15/24 Cephalexin Monohydrate (Cephalexin) 500 Mg Cap, 1 CAP PO QID for 7 Days, #28 CAP 0 Refills Prov:JEOVANY VARELA SINGLE END SEWER 07/15/24 Ondansetron Odt 4MG Tab (ZOFRAN PO) 4 Mg Tb, 4 MG PO Q6HPRN PRN, #20 TAB ODT TAB-DISSOLVE IN MOUTH, THEN SWALLOW Prov:KEZIA WHITAKER PAC 08/14/23 Prednisone (Prednisone) 20 Mg Tab, 20 MG PO BID for 5 Days, #10 MG Prov:SASCHA SANTOS MD 09/22/21 Albuterol Sulfate (Albuterol Sulfate Hfa) 108 Mcg/Act Aer, 108 MCG IN TID, #1 AER Prov:SASCHA SANTOS MD 09/22/21 Azithromycin (Zithromax) 500 Mg Tab, 1 TAB PO DAILY, #5 TAB Prov:SASCHA SANTOS MD 09/22/21 Hydrocodone-Acetaminophen (Hydrocodone Bitartrate/AC 5-325 mg) 1 Tab Tab, 1 TAB PO Q8HR PRN, #30 TAB Prov:LUBA DAVILA MD 06/03/21 Fluoxetine HCl (Fluoxetine) 60 Mg Tab, 20 MG PO DAILY, #90 TAB Prov:LUBA DAVILA MD 06/03/21 Aspirin (ASPIRIN 81) 81 Mg Tab, 81 MG OR DAILY, #90 TAB Prov:LUBA DAVILA MD 06/03/21 Reported Medications Ibuprofen (Ibuprofen) 600 Mg Tab, 600 MG PO, TAB 08/16/21 Acetaminophen (Apap) 325 Mg Tab, 325 MG PO, TAB 08/16/21 Hydroxyzine Pamoate (Vistaril) 25 Mg Cap, 25 MG PO HS, CAP 08/16/21 Topiramate (Topiramate) 100 Mg Tab, 100 MG PO BID, TAB 08/16/21 Buspirone Hcl (Buspirone Hcl) 5 Mg Tab, 10 MG PO BID, TAB 08/16/21 Benztropine Mesylate (Benztropine Mesylate) 1 Mg Tab, 1 MG PO, TAB 08/16/21 Oxcarbazepine (Trileptal) 600 Mg Tab, 300 MG PO BID, TAB 08/16/21 Clonazepam (KlonoPIN TABLET) 0.5 Mg Tb, 1 TAB PO DAILY, #30 TAB 05/31/21 Triamterene & Hydrochlorothiaz (Maxzide-25) Tab, 1 TAB PO DAILY, #30 TAB 5 Refills 05/31/21 Zolpidem Tartrate (Zolpidem Tartrate) 10 Mg Tab, 1 TAB PO QPM, #30 TAB 2 Refills 05/31/21 Estradiol (Estradiol) 1 Mg Tab, 1 MG PO DAILY, MG 05/31/21 Lamotrigine (Lamotrigine) 100 Mg Tab, 1 TAB PO BID, #60 TAB 05/31/21 Lurasidone Hydrochloride (LATUDA) Unknown Strength Tab, PO QPM, #30 TAB 05/31/21 Lisinopril (Lisinopril) 5 Mg Tab, 5 MG PO BID for 30 Days, MG 05/31/21 Information Source: Patient Mode of Arrival: Wheelchair Severity: Moderate Timing: Hours Duration: Since onset Prehospital treatment: None Past Medical History PAST MEDICAL HISTORY: Asthma, CVA, High Lipids, HTN, Seizures Surgical History: Cholecystectomy, , Hysterectomy STONE BANKER History: No Pertinent STONE BANKER History Family History Family History: Reviewed,noncontributory to illness Social History Smoker: Non-Smoker Alcohol: Denies ETOH Use Drugs: Denies Drug Use Lives In: Home All Other Systems: Reviewed and Negative (Comprehensive systems review obtained and negative except for what is stated in the HPI.) Physical Exam General Appearance: No Apparent Distress, Normal HEENT: Normal ENT Inspection, Pharynx Normal, TMs Normal Neck: Full Range of Motion, Non-Tender, Normal, Normal Inspection Respiratory: Chest Non-Tender, Lungs Clear, No Accessory Muscle Use, No Respiratory Distress, Normal Breath Sounds Cardiovascular: No Edema, No JVD, No Murmur, No Gallop, Normal Peripheral Pulses, Regular Rate/Rhythm Breast Exam: Deferred Gastrointestinal: No Organomegaly, Non Tender, No Pulsatile Mass, Normal Bowel Sounds, Soft Genitalia: Deferred Pelvic: Deferred Rectal: Deferred Extremities: No calf tenderness, Normal capillary refill, Normal inspection, Normal range of motion, No pedal edema, Tender (left ankle ) Musculoskeletal : Apperance: Normal Neurologic: Alert, director of operations II-XII nml as Tested, No Motor Deficits, Normal Affect, Normal Mood, No Sensory Deficits Cerebellar Function: Normal Reflexes: Normal Skin: Dry, Normal Color, Warm Lymphatic: No Adenopathy Was a procedure done? Was a procedure done?: No Differential Dx Considerations may include: fracture, contusions, bruising, dislocation, sprain, among others X-Ray, Labs, Meds, VS Vital Signs Date Time Temp Pulse Resp B/P (MAP) Pulse Ox O2 Delivery O2 Flow Rate FiO2 11/09/24 16:58 78 16 98 Room Air 11/09/24 16:58 98.5 78 16 172/84 (113) 98 98.5 11/09/24 15:34 98.9 83 20 149/100 (116) 95 98.9 Current Medications Medications (Trade) Dose Ordered Sig/Sanjay Route Start Time Stop Time Status Last Admin Acetaminophen/ Hydrocodone Bitart ([place] 5/325MG Tab) 1 tab ONCE ONCE PO 11/09/24 16:15 11/09/24 16:16 DC 11/09/24 16:52 [place] [address] Ph: [phone] DIAGNOSTIC IMAGING Diagnostic Imaging Report : [id number] Signed PATIENT: ALLA SIFUENTES ACCT: [id number] UNIT: [id number] : 1970 LOC: ER ROOM / BED: / AGE / SEX: 54 / F ADM STATUS: REG ER SERVICE 1615 ORDERING PHYSICIAN: KEVYN VÁSQUEZ MD PROCEDURE(s): LTBFB - L TIB FIB XRAY REASON: left oliveira pain ORDER NUMBER(s): [id number], ACCESSION NUMBER(s): [id number] X-ray left foreleg Technique: AP lateral and oblique views REASON FOR EXAM: left oliveira pain FINDINGS: No fractures or dislocations. No erosions or periosteal reaction. Articular surfaces are smooth. IMPRESSION: 1. No acute bony pathology ATED BY: MEAGAN ACEVEDO MD DICTATED DATE/TIME: 11/09/241649 SIGNED BY: MEAGAN ACEVEDO MD SIGNED DATE/TIME: 11/09/241649 CC: [place] [address] Ph: [phone] DIAGNOSTIC IMAGING Diagnostic Imaging Report : [id number] Signed PATIENT: ALLA SIFUENTES ACCT: [id number] UNIT: [id number] : 1970 LOC: ER ROOM / BED: / AGE / SEX: 54 / F ADM STATUS: REG ER SERVICE 14 ORDERING PHYSICIAN: KEVYN VÁSQUEZ MD PROCEDURE(s): LANKL - L ANKLE 3 VIEW REASON: left ankle pain ORDER NUMBER(s): [id number], ACCESSION NUMBER(s): [id number] X-ray left ankle Technique: AP lateral and oblique views REASON FOR EXAM: left ankle pain FINDINGS: No fractures or dislocations. No erosions or periosteal reaction. Articular surfaces are smooth. IMPRESSION: 1. No acute bony pathology ATED BY: MEAGAN ACEVEDO MD DICTATED DATE/TIME: 11/09/241649 SIGNED BY: MEAGAN ACEVEDO MD SIGNED DATE/TIME: 11/09/241649 CC: Time of 1ST Reevaluation: 16:40 Reevaluation 1ST: Unchanged Patient Education/Counseling: Diagnosis, Treatment Family Education/Counseling: No Family Present SEPSIS Sepsis Screen Date sepsis recognized/suspect: Nov 09, 2024 Time Sepsis recognized/suspect: 1514 Recent Procedure: No On Antibiotic Therapy: No Respiratory Rate >20: No Heart Rate >90: No Temp<36 C (96.8 F) or >38.3 C: No SBP <90 or MAP <65 mmHG: No New Acute Mental Status Change: No Is the patient on CPAP, BIPAP,: No Physician Orders L Ankle 3 View (11/09/24 16:15) L Tib Fib Xray (11/09/24 16:15) Vital Signs Date Time Temp Pulse Resp B/P (MAP) Pulse Ox O2 Delivery O2 Flow Rate FiO2 11/09/24 16:58 78 16 98 Room Air 11/09/24 16:58 98.5 78 16 172/84 (113) 98 98.5 11/09/24 15:34 98.9 83 20 149/100 (116) 95 98.9 Medications Medications Dose Ordered Sig/Sanjay Route Start Time Stop Time Status Last Admin Dose Admin Acetaminophen/ Hydrocodone Bitart 1 tab ONCE ONCE PO 11/09/24 16:15 11/09/24 16:16 DC 11/09/24 16:52 Departure 1 Departure Time of Disposition: 19:04 (Patient's x-ray is benign. Patient likely sprained her ankle. We will discharge patient home with outpatient follow up) Impression: Primary Impression: Left ankle sprain Qualified Codes: S93.402A - Sprain of unspecified ligament of left ankle, initial encounter Additional Impression: Fall Qualified Codes: W19.XXXA - Unspecified fall, initial encounter Disposition: HOME / SELF CARE / HOMELESS Condition: Stable Additional Instructions: You sprained your ankle. Fortunately it is not broken on X-ray today. A sprain can hurt as much as a brake but heals much faster. You can ice your ankle as needed for pain. You can vania wrap your ankle as needed for pain. You can use crutches as needed. For pain you can take: 8am: Ibuprofen 400mg with food Noon: Tylenol 1000mg 4pm: Ibprofen 400mg with food 8pm: Tylenol 1000mg You were referred to our orthopedic surgeon to ensure you are healing well. Please call for an appointment within one week. If your symptoms worsen or you have any other concerns then please return to the ER. Discharged With: Self Critical Care Note Critical Care Time?: No Stability Stability form required: No Heart Score Heart Score: Heart Score Response (Comments) Value History N/A 0 EKG N/A 0 Age N/A 0 Risk Factors N/A 0 Troponin N/A 0 Total 0 I personally scribed for KEVYN VÁSQUEZ MD ([email or web address]) on 11/09/24 at 18:49. Electronically submitted by Jayme Inman ([email or web address]). I personally scribed for KEVYN VÁSQUEZ MD ([email or web address]) on 11/09/24 at 19:03. Electronically submitted by Jayme Inman ([email or web address]). KEVYN VÁSQUEZ MD Nov 09, 2024 18:49
[2024-11-09 19:27] VITALS: BP 155/99; PULSE 68; RESP 18; TEMP 97.8; O2SAT 94
== END 2024-11-09 20:05 | disposition home or self-care (01) ==
LOC: ER 15:10
DX: S93.492A Sprain of other ligament of left ankle, initial encounter (principal); I10 Essential (primary) hypertension; J45.909 Unspecified asthma, uncomplicated; E78.5 Hyperlipidemia, unspecified; Z79.82 Long term (current) use of aspirin; Z79.899 Other long term (current) drug therapy; Z86.73 Personal history of transient ischemic attack (TIA), and cerebral infarction without residual deficits; Z90.49 Acquired absence of other specified parts of digestive tract; Z90.710 Acquired absence of both cervix and uterus; Z88.0 Allergy status to penicillin; Z88.1 Allergy status to other antibiotic agents; W01.0XXA Fall on same level from slipping, tripping and stumbling without subsequent striking against object, initial encounter; Y93.89 Activity, other specified; Y92.89 Other specified places as the place of occurrence of the external cause; Y99.8 Other external cause status
CPT/HCPCS: 73590; 73610

== ENCOUNTER 2025-04-18 11:06 | Inpatient (IN) | payer MEDICARE, MEDICAID ==
[2025-04-18] VITALS (7 sets, daily range): BP systolic 107–156; BP diastolic 65–81; PULSE 85–97; RESP 18–20; TEMP 97.2–98.2; O2SAT 94–100
[~2025-04-18] VITALS: Ht 167.6 cm; Wt 80.1 kg
--- NOTE | 2025-04-18 11:43 | ED.PDOC ---
History of Present Illness HPI Comments This is a 54-year old female with past medical history of asthma and hypertension who was brought in to the ED by ambulance with the chief complaint of shortness of breath. She mentions having shortness of breath at home since 3 days for which she tried using her albuterol inhaler every 4 hours, but got no relief. She has also had some tightness in the chest. She went to [facility] urgent care this morning, from where she was referred here. She continues to complain of shortness of breath on 4l oxygen and after albuterol and atrovent. Chief Complaint: Shortness of Breath Time Seen by MD: 11:15 Primary Care Provider: [facility] Allergies: Coded Allergies: Erythromycin (Verified Allergy, Mild, 11/02/10) Penicillins (Verified Allergy, Mild, 08/19/21) Home Meds Active Scripts Hydroxyzine HCl (Hydroxyzine Hydrochloride) 25 Mg Tab, 25 MG PO TID for 10 Days, #30 TAB 0 Refills Prov:JEOVANY VARELA PHOTOTYPESETTER OPERATOR 07/15/24 Cephalexin Monohydrate (Cephalexin) 500 Mg Cap, 1 CAP PO QID for 7 Days, #28 CAP 0 Refills Prov:JEOVANY VARELA PHOTOTYPESETTER OPERATOR 07/15/24 Ondansetron Odt 4MG Tab (ZOFRAN PO) 4 Mg Tb, 4 MG PO Q6HPRN PRN, #20 TAB ODT TAB-DISSOLVE IN MOUTH, THEN SWALLOW Prov:KEZIA WHITAKER PAC 08/14/23 Prednisone (Prednisone) 20 Mg Tab, 20 MG PO BID for 5 Days, #10 MG Prov:SASCHA SANTOS MD 09/22/21 Albuterol Sulfate (Albuterol Sulfate Hfa) 108 Mcg/Act Aer, 108 MCG IN TID, #1 AER Prov:SASCHA SANTOS MD 09/22/21 Azithromycin (Zithromax) 500 Mg Tab, 1 TAB PO DAILY, #5 TAB Prov:SASCHA SANTOS MD 09/22/21 Hydrocodone-Acetaminophen (Hydrocodone Bitartrate/AC 5-325 mg) 1 Tab Tab, 1 TAB PO Q8HR PRN, #30 TAB Prov:LUBA DAVILA MD 06/03/21 Fluoxetine HCl (Fluoxetine) 60 Mg Tab, 20 MG PO DAILY, #90 TAB Prov:LUBA DAVILA MD 06/03/21 Aspirin (ASPIRIN 81) 81 Mg Tab, 81 MG OR DAILY, #90 TAB Prov:LUBA DAVILA MD 06/03/21 Reported Medications Ibuprofen (Ibuprofen) 600 Mg Tab, 600 MG PO, TAB 08/16/21 Acetaminophen (Apap) 325 Mg Tab, 325 MG PO, TAB 08/16/21 Hydroxyzine Pamoate (Vistaril) 25 Mg Cap, 25 MG PO HS, CAP 08/16/21 Topiramate (Topiramate) 100 Mg Tab, 100 MG PO BID, TAB 08/16/21 Buspirone Hcl (Buspirone Hcl) 5 Mg Tab, 10 MG PO BID, TAB 08/16/21 Benztropine Mesylate (Benztropine Mesylate) 1 Mg Tab, 1 MG PO, TAB 08/16/21 Oxcarbazepine (Trileptal) 600 Mg Tab, 300 MG PO BID, TAB 08/16/21 Clonazepam (KlonoPIN TABLET) 0.5 Mg Tb, 1 TAB PO DAILY, #30 TAB 05/31/21 Triamterene & Hydrochlorothiaz (Maxzide-25) Tab, 1 TAB PO DAILY, #30 TAB 5 Refills 05/31/21 Zolpidem Tartrate (Zolpidem Tartrate) 10 Mg Tab, 1 TAB PO QPM, #30 TAB 2 Refills 05/31/21 Estradiol (Estradiol) 1 Mg Tab, 1 MG PO DAILY, MG 05/31/21 Lamotrigine (Lamotrigine) 100 Mg Tab, 1 TAB PO BID, #60 TAB 05/31/21 Lurasidone Hydrochloride (LATUDA) Unknown Strength Tab, PO QPM, #30 TAB 05/31/21 Lisinopril (Lisinopril) 5 Mg Tab, 5 MG PO BID for 30 Days, MG 05/31/21 Information Source: Patient Mode of Arrival: EMS Severity: Moderate Timing: Days Duration: Since onset Prehospital treatment: Breathing Tx Past Medical History PAST MEDICAL HISTORY: Asthma, CVA, High Lipids, HTN, Seizures Surgical History: Cholecystectomy, , Hysterectomy 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: No Pertinent 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 Family History Family History: Reviewed,noncontributory to illness Social History Smoker: Non-Smoker Alcohol: Denies ETOH Use Drugs: Denies Drug Use Lives In: Home Constitutional: denies: chills, diaphoresis, fatigue, fever, malaise, sweats, weakness, others EENTM: denies: blurred vision, double vision, ear bleeding, ear discharge, ear drainage, ear pain, ear ringing, eye pain, eye redness, hearing loss, mouth pain, mouth swelling, nasal discharge, nose bleeding, nose congestion, nose pain, photophobia, tearing, throat pain, throat swelling, voice changes, others Respiratory: reports: shortness of breath, wheezing; denies: cough, hemoptysis, orthopnea, SOB at rest, SOB with excertion, stridor, others Cardiovascular: reports: others (chest tightness); denies: chest pain, dizzy spells, diaphoresis, Dyspnea on exertion, edema, irregular heart beat, left arm pain, lightheadedness, palpitations, PND, syncope Gastrointestinal: denies: abdomen distended, abdominal pain, blood streaked bowels, constipated, diarrhea, dysphagia, difficulty swallowing, hematemesis, melena, nausea, poor appetite, poor fluid intake, rectal bleeding, rectal pain, vomiting, others Genitourinary: denies: abnormal vagina bleeding, burning, dyspareunia, dysuria, flank pain, frequency, hematuria, incontinence, pain, , vagina discharge, urgency, others Neurological: denies: dizziness, fainting, headache, left sided numbness, left sided weakness, numbness, paresthesia, pre-existing deficit, right sided numbness, right sided weakness, seizure, speech problems, tingling, tremors, weakness, others Musculoskeletal: denies: back pain, gout, joint pain, joint swelling, muscle pain, muscle stiffness, neck pain, others Integumetry: denies: bruises, change in color, change in hair/nails, dryness, laceration, lesions, lumps, rash, wounds, others Allergic/Immunocompromised: denies: Difficulty Healing, Frequent Infections, Hives, Itching, others Endocrine: denies: excessive hunger, excessive sweating, excessive thirst, excessive urination, flushing, intolerance to cold, intolerance to heat, unex plained weight gain, unexplained weight loss, others Psychiatric: denies: anxiety, bipolar disorder, depression, hopeless, panic disorder, schizophrenia, sleepless, suicidal, others Physical Exam General Appearance: Obese HEENT: Normal ENT Inspection Neck: Non-Tender, Normal Inspection Respiratory: Chest Non-Tender, Respiratory Distress, Wheezing Cardiovascular: No Edema Breast Exam: Normal Gastrointestinal: Non Tender, No Pulsatile Mass, Normal Bowel Sounds Genitalia: Deferred Pelvic: Deferred Rectal: Deferred Extremities: Normal capillary refill, Normal inspection, Normal range of motion, Non-tender, No pedal edema Neurologic: Alert, No Motor Deficits, Normal Affect, Normal Mood, No Sensory Deficits Cerebellar Function: Normal Reflexes: Normal Skin: Normal Color Lymphatic: No Adenopathy Was a procedure done? Was a procedure done?: No Differential Dx Considerations may include: acute hypoxic respiratory failure, acute asthma exacerbation, hypertension X-Ray, Labs, Meds, VS Vital Signs Date Time Temp Pulse Resp B/P (MAP) Pulse Ox O2 Delivery O2 Flow Rate FiO2 04/18/25 11:51 98.2 96 18 136/81 (99) 99 98.2 04/18/25 11:51 96 18 99 Nasal Cannula* 4 36 04/18/25 11:48 16 94 Nasal Cannula* 3 32 04/18/25 11:27 98.3 89 24 162/93 99 98.3 Lab Test 04/18/25 13:08 04/18/25 12:11 Range/Units Troponin I High Sensitivity 13 9 </=34 ng/L White Blood Count Pending Red Blood Count Pending Hemoglobin Pending Hematocrit Pending Mean Corpuscular Volume Pending Mean Corpuscular Hemoglobin Pending Mean Corpuscular Hemoglobin Concent Pending Red Cell Distribution Width Pending Platelet Count Pending Mean Platelet Volume Pending Neutrophils (%) (Auto) Pending Lymphocytes (%) (Auto) Pending Monocytes (%) (Auto) Pending Basophils (%) (Auto) Pending Neutrophils # (Auto) Pending Lymphocytes # (Auto) Pending Monocytes # (Auto) Pending Sodium Level 142 136-145 mmol/L Potassium Level 3.4 L 3.5-5.1 mmol/L Chloride Level 103 98-107 mmol/L Carbon Dioxide Level 27 20-31 mmol/L Anion Gap 12 5-15 Blood Urea Nitrogen 13 9-23 mg/dL Creatinine 0.85 0.550-1.02 mg/dL Glomerular Filtration Rate Calc 81 >90 mL/min BUN/Creatinine Ratio 15.3 10.0-20.0 Serum Glucose 101 74-106 mg/dL Calcium Level 9.0 8.7-10.4 mg/dL Current Medications Medications (Trade) Dose Ordered Sig/Sanjay Route Start Time Stop Time Status Last Admin Albuterol (Ventolin Medneb) 1.25 mg ONCE ONCE NEB 04/18/25 11:30 04/18/25 11:31 DC 04/18/25 11:52 Ipratropium [place] (Atrovent Medneb) 0.5 mg ONCE ONCE NEB 04/18/25 11:30 04/18/25 11:31 DC 04/18/25 11:52 Methylprednisolone Sodium Succinate (Solu Medrol) 125 mg ONCE ONCE IV 04/18/25 11:30 04/18/25 11:31 DC 04/18/25 12:21 Magnesium Sulfate/ Dextrose 100 ml @ 100 mls/hr Q1H IV 04/18/25 11:30 04/18/25 13:29 DC 04/18/25 13:30 Albuterol (Ventolin Medneb) 20 mg ONCE ONCE NEB 04/18/25 11:45 04/18/25 11:46 DC 04/18/25 11:52 Time of 1ST Reevaluation: 11:42 Reevaluation 1ST: Unchanged Patient Education/Counseling: Diagnosis, Treatment, Prognosis Family Education/Counseling: No Family Present SEPSIS Sepsis Screen Date sepsis recognized/suspect: Apr 18, 2025 Time Sepsis recognized/suspect: 1109 Recent Procedure: No On Antibiotic Therapy: No Respiratory Rate >20: No Heart Rate >90: No Temp<36 C (96.8 F) or >38.3 C: No SBP <90 or MAP <65 mmHG: No New Acute Mental Status Change: No Is the patient on CPAP, BIPAP,: No Physician Orders Complete Blood Count (04/18/25 11:18) Chest Xray 1 View (04/18/25 11:18) Electrocardigram (04/18/25 11:18) Troponin-I Hs (04/18/25 14:18) Covid19 Antigen Maria Guadalupe (04/18/25 ) Rapid Influenza A&B (04/18/25 11:28) Potassium Effervesent Tab (Klor-Con/Ef) (04/18/25 14:00) Vital Signs Date Time Temp Pulse Resp B/P (MAP) Pulse Ox O2 Delivery O2 Flow Rate FiO2 04/18/25 11:51 98.2 96 18 136/81 (99) 99 98.2 04/18/25 11:51 96 18 99 Nasal Cannula* 4 36 04/18/25 11:48 16 94 Nasal Cannula* 3 32 04/18/25 11:27 98.3 89 24 162/93 99 98.3 Laboratory Tests Test 04/18/25 12:11 White Blood Count Pending Medications Medications Dose Ordered Sig/Sanjay Route Start Time Stop Time Status Last Admin Dose Admin Albuterol 1.25 mg ONCE ONCE NEB 04/18/25 11:30 04/18/25 11:31 DC 04/18/25 11:52 Albuterol 20 mg ONCE ONCE NEB 04/18/25 11:45 04/18/25 11:46 DC 04/18/25 11:52 Ipratropium [place] 0.5 mg ONCE ONCE NEB 04/18/25 11:30 04/18/25 11:31 DC 04/18/25 11:52 Magnesium Sulfate/ Dextrose 100 ml @ 100 mls/hr Q1H IV 04/18/25 11:30 04/18/25 13:29 DC 04/18/25 13:30 Methylprednisolone Sodium Succinate 125 mg ONCE ONCE IV 04/18/25 11:30 04/18/25 11:31 DC 04/18/25 12:21 Departure 1 Departure Time of Disposition: 11:42 Impression: Primary Impression: Acute hypoxic respiratory failure Additional Impressions: Acute asthma exacerbation Upper respiratory infection Disposition: 30 STILL A PATIENT Condition: Fair Critical Care Note Critical Care Time?: No Stability Stability form required: VAHE Mas RESIDENT Apr 18, 2025 11:43
[2025-04-18] MEDS: IPRATROPIUM BROM 0.5 MG/2.5ML INH SOL NEB ONE (11:52)
[2025-04-18] MEDS: ALBUTEROL SULF 2.5 MG/0.5ML(0.5%) NEB SOLN NEB ONE ×2 (11:52)
--- NOTE | 2025-04-18 11:55 | DVH ---
CHEST RADIOGRAPH INDICATION: shortness of breath TECHNIQUE: Single frontal view of the chest was obtained COMPARISON: XY CHEST PORTABLE on DOS: 06/04/24, XY CHEST PORTABLE on DOS: 03/22/24, XY CHEST PORTABLE on DOS: 08/14/23, XY CHEST PORTABLE on DOS: 06/18/22, CHEST TWO VIEWS ROUTINE on DOS: 09/22/21 FINDINGS: Lines and Tubes: None Lungs: Clear Pleura: No effusion. No pneumothorax. Cardiomediastinal contours: Unremarkable Bones: Unremarkable IMPRESSION: 1. No acute disease.
[2025-04-18] MEDS: methylPREDNISolone SOD SUCC 125 MG/2 ML VL IV ONE (12:21)
[2025-04-18] MEDS: MAGNESIUM SULFATE 1GM/100ML 100 ML IV SCH (12:21)
[2025-04-18 12:42] LABS: Chloride 103 mmol/L (98-107); Sodium 142 mmol/L (136-145)
[2025-04-18 12:43] LABS: Anion Gap 12 (5-15); Carbon Dioxide 27 mmol/L (20-31)
[2025-04-18 12:44] LABS: Calcium 9.0 mg/dL (8.7-10.4)
[2025-04-18 12:48] LABS: Glucose 101 mg/dL (74-106)
[2025-04-18 12:49] LABS: BUN/Creatinine Ratio 15.3 (10.0-20.0); Blood Urea Nitrogen 13 mg/dL (9-23)
[2025-04-18 12:54] LABS: Potassium 3.4 mmol/L (3.5-5.1)
[2025-04-18] MEDS ORDERED: ONDANSETRON HCL 4 MG/2 ML VIAL IV PRN (14:30)
[2025-04-18] MEDS ORDERED: AMPICILLIN & SULBACTAM SODIUM 3 GM in SODIUM CHL 0.9% 100 ML IV SCH (14:30)
[2025-04-18 15:07] LABS: Hematocrit 40.8 % (36.0-46.0); Hemoglobin 13.8 g/dL (12.2-16.2); Mean Corpuscular Hemoglobin 31.2 pg (28.0-32.0); Mean Corpuscular Volume 92.1 fL (80.0-100.0); Nucleated Red Blood Cells % 0.0 %
[2025-04-18] MEDS: POTASSIUM EFFERVESENT TAB 25 MEQ PO ONE (15:10)
--- NOTE | 2025-04-18 15:12 | DVHHP2 ---
History of Present Illness History of Present Illness 54-year old female with past medical history of asthma and hypertension who was brought in to the ED by ambulance with the chief complaint of shortness of breath. She mentions having shortness of breath at home since 3 days for which she tried using her albuterol inhaler every 4 hours, but got no relief. She has also had some tightness in the chest. She went to [facility] urgent care this morning, from where she was referred here. She continues to complain of shortness of breath on 4l oxygen and after albuterol and atrovent. Patient has no fevers chills, no sick contacts. She is complaining of nausea and vomiting for few days, followed by shortness of breath. Review of Systems Review of Systems As HPI Allergies: Coded Allergies: Erythromycin (Verified Allergy, Mild, 11/02/10) Penicillins (Verified Allergy, Mild, 08/19/21) Exam Vital Signs Vital Signs Date Time Temp Pulse Resp B/P (MAP) Pulse Ox O2 Delivery O2 Flow Rate FiO2 04/18/25 11:51 98.2 96 18 136/81 (99) 99 98.2 04/18/25 11:51 Nasal Cannula* 4 36 Exam GEN: Healthy appearing, well-developed, NAD. HEENT: NC/AT; MMM. CV: RRR, no m/r/g. LUNGS: Wheezing on lung bryson ABD: Soft, NT/ND, NBS, no masses or organomegaly. EXT: skin Warm, well perfused. no rashes. No clubbing, cyanosis, or edema. NEURO: Ambulating with no limitations. No focal deficits. Labs/Xrays Labs Test 04/18/25 13:54 04/18/25 13:08 04/18/25 12:11 Range/Units Troponin I High Sensitivity 13 </=34 ng/L Sodium Level 142 136-145 mmol/L Potassium Level 3.4 L 3.5-5.1 mmol/L Chloride Level 103 98-107 mmol/L Carbon Dioxide Level 27 20-31 mmol/L Anion Gap 12 5-15 Blood Urea Nitrogen 13 9-23 mg/dL Creatinine 0.85 0.550-1.02 mg/dL Glomerular Filtration Rate Calc 81 >90 mL/min BUN/Creatinine Ratio 15.3 10.0-20.0 Serum Glucose 101 74-106 mg/dL Calcium Level 9.0 8.7-10.4 mg/dL SEPSIS Sepsis Screen Date sepsis recognized/suspect: Apr 18, 2025 Time Sepsis recognized/suspect: 1151 Recent Procedure: No On Antibiotic Therapy: No Respiratory Rate >20: No Heart Rate >90: Yes Temp<36 C (96.8 F) or >38.3 C: No SBP <90 or MAP <65 mmHG: No New Acute Mental Status Change: No Is the patient on CPAP, BIPAP,: No Physician Orders Complete Blood Count (04/18/25 11:18) Chest Xray 1 View (04/18/25 11:18) Electrocardigram (04/18/25 11:18) Troponin-I Hs (04/18/25 14:18) Covid19 Antigen Maria Guadalupe (04/18/25 ) Rapid Influenza A&B (04/18/25 11:28) Vital Signs Date Time Temp Pulse Resp B/P (MAP) Pulse Ox O2 Delivery O2 Flow Rate FiO2 04/18/25 11:51 98.2 96 18 136/81 (99) 99 98.2 04/18/25 11:51 96 18 99 Nasal Cannula* 4 36 04/18/25 11:48 16 94 Nasal Cannula* 3 32 04/18/25 11:27 98.3 89 24 162/93 99 98.3 Laboratory Tests Test 04/18/25 12:11 White Blood Count Pending Medications Medications Dose Ordered Sig/Sanjay Route Start Time Stop Time Status Last Admin Dose Admin Albuterol 1.25 mg ONCE ONCE NEB 04/18/25 11:30 04/18/25 11:31 DC 04/18/25 11:52 1.25 MG Albuterol 20 mg ONCE ONCE NEB 04/18/25 11:45 04/18/25 11:46 DC 04/18/25 11:52 20 MG Ipratropium [place] 0.5 mg ONCE ONCE NEB 04/18/25 11:30 04/18/25 11:31 DC 04/18/25 11:52 0.5 MG Magnesium Sulfate/ Dextrose 100 ml @ 100 mls/hr Q1H IV 04/18/25 11:30 04/18/25 13:29 DC 04/18/25 13:30 100 MLS/HR Methylprednisolone Sodium Succinate 125 mg ONCE ONCE IV 04/18/25 11:30 04/18/25 11:31 DC 04/18/25 12:21 125 MG Assessment/Plan Assessment/Plan 54-year old female with past medical history of asthma and hypertension who was brought in to the ED by ambulance with the chief complaint of shortness of breath. She mentions having shortness of breath at home since 3 days for which she tried using her albuterol inhaler every 4 hours, but got no relief. She has also had some tightness in the chest. She went to [facility] urgent care this morning, from where she was referred here. She continues to complain of shortness of breath on 4l oxygen and after albuterol and atrovent. 04/18: Patient had GI symptoms nausea and vomiting for 3 days, then she has shortness of breath. On exam patient has wheezing, no pitting edema. Patient has some mediastinal widening but x-ray is rotated, some reticular opacities, we will follow up with BNP, from exam patient is wheezing. We will check COVID flu Diagnosis: Acute hypoxic respiratory failure, due to below Pneumonia, Gram-negative Gram-positive likely Acute asthma exacerbation Gastroenteritis possible, infectious etiology likely Anxiety depression Seizure history epileptic disorder Insomnia Hypertension Plan: Antibiotics IV, Unasyn/doxycycline Duo nebs Solu-Medrol 40 daily Prn antiemetics Prn analgesia Continue home meds Med surge Full code Plan discussed with: Patient Date of Service: Apr 18, 2025 Billing Provider: ANAY VILLEDA MD Common Visit Codes: [id number] INP/OBS CARE (HIGH) Secondary Visit Codes: [id number] CARE PLAN 30 MINUTES ANAY VILLEDA MD Apr 18, 2025 15:12
[2025-04-18] MEDS: SODIUM CHLORIDE 0.9% 1,000 ML IV SCH (15:23)
[2025-04-18] MEDS: DOXYCYCLINE 100MG/100ML 100 ML IV SCH (15:24)
[2025-04-18 15:27] LABS: COVID19 ANTIGEN SOFIA FIA NEGATIVE (NEGATIVE)
[2025-04-18] MEDS ORDERED: MORPHINE SULFATE 4 MG/ML SYR/VIAL IV PRN (15:45)
[2025-04-18] MEDS: IPRATROPIUM BROM 0.5 MG/2.5ML INH SOL NEB SCH (18:49)
[2025-04-18] MEDS: ALBUTEROL SULF 2.5 MG/0.5ML(0.5%) NEB SOLN NEB SCH (18:50)
[2025-04-18] MEDS: TOPIRAMATE 100 MG TAB PO SCH (22:36)
[2025-04-18] MEDS: lamoTRIgine 100 MG TAB PO SCH (22:36)
[2025-04-18] MEDS: LISINOPRIL 5 MG TAB PO SCH (22:36)
[2025-04-19] VITALS (12 sets, daily range): BP systolic 119–145; BP diastolic 75–80; PULSE 61–94; RESP 17–20; TEMP 97.1–98.8; O2SAT 67–100
[2025-04-19 05:44] LABS: Hematocrit 40.6 % (36.0-46.0); Hemoglobin 14.0 g/dL (12.2-16.2); Mean Corpuscular Hemoglobin 31.7 pg (28.0-32.0); Mean Corpuscular Volume 91.9 fL (80.0-100.0); Nucleated Red Blood Cells % 0.0 %
[2025-04-19 06:01] LABS: Alanine Aminotransferase 21 U/L (7-40); Albumin 4.0 g/dL (3.2-4.8); Alkaline Phosphatase 96 U/L (46-116); Anion Gap 10 (5-15); BUN/Creatinine Ratio 9.8 (10.0-20.0); Blood Urea Nitrogen 8 mg/dL (9-23); Calcium 9.3 mg/dL (8.7-10.4); Carbon Dioxide 27 mmol/L (20-31); Chloride 106 mmol/L (98-107); Glucose 122 mg/dL (74-106); Potassium 4.4 mmol/L (3.5-5.1); Sodium 143 mmol/L (136-145); Total Protein 7.3 g/dL (5.7-8.2)
[2025-04-19 06:04] LABS: Bilirubin, Total 0.2 mg/dL (0.2-1.0)
[2025-04-19] MEDS: ASPirin-EC 81 mg tab PO SCH (09:08)
[2025-04-19] MEDS: methylPREDNISolone SOD SUCC 40 MG/ML VL IV SCH (09:09)
[2025-04-19] MEDS: hydroCHLOROthiazide 25 MG TAB PO SCH (09:10)
[2025-04-19] MEDS: ENOXAPARIN SOD 40 MG/0.4 ML SYRINGE SC SCH (09:11)
[2025-04-19] MEDS: ESTRADIOL 1 MG TAB PO SCH (10:00)
--- NOTE | 2025-04-19 12:52 | DVHPN2 ---
Reviewed: H&P Changes from previous H/P or p: No Changes General: Per HPI Objective Vitals Vital Signs Date Time Temp Pulse Resp B/P (MAP) Pulse Ox O2 Delivery O2 Flow Rate FiO2 04/19/25 12:31 63 18 100 04/19/25 12:24 Nasal Cannula 3.0 04/19/25 12:24 32 04/19/25 09:10 119/78 04/19/25 08:59 98.1 98.1 Intake/Output Intake and Output 04/19/25 07:00 Intake Total 760 ml Balance 760 ml Intake Oral 540 ml IV Total 220 ml # Voids 1 Exam GEN: Healthy appearing, well-developed, NAD. HEENT: NC/AT; MMM. CV: RRR, no m/r/g. LUNGS: Wheezing on lung bryson ABD: Soft, NT/ND, NBS, no masses or organomegaly. EXT: skin Warm, well perfused. no rashes. No clubbing, cyanosis, or edema. NEURO: Ambulating with no limitations. No focal deficits. Medications Current Medications Medications Dose Ordered Sig/Sanjay Route Start Time Stop Time Status Last Admin Dose Admin Sodium Chloride 1,000 ml @ 60 mls/hr [id number] IV 04/18/25 14:30 04/19/25 09:11 60 MLS/HR Acetaminophen/ Hydrocodone Bitart 1 tab Q4HP PRN PO 04/18/25 14:30 Ondansetron HCl 4 mg Q4HP PRN IV 04/18/25 14:30 Enoxaparin Sodium 40 mg DAILY SC 04/19/25 10:00 04/19/25 09:11 40 MG Acetaminophen 650 mg Q6HP PRN PO 04/18/25 14:30 Morphine Sulfate 2 mg Q4HPRN PRN IV 04/18/25 15:45 Methylprednisolone Sodium Succinate 40 mg DAILY IV 04/19/25 10:00 04/19/25 09:09 40 MG Ipratropium [place] 0.5 mg Q6HWA NEB 04/18/25 18:00 04/19/25 12:24 0.5 MG Albuterol 2.5 mg Q6HWA NEB 04/18/25 18:00 04/19/25 12:24 2.5 MG Ampicillin Sodium/ Sulbactam Sodium 3 gm/Sodium Chloride 100 ml @ 100 mls/hr Q6H IV 04/18/25 14:30 Hold Doxycycline Hyclate 100 ml @ 50 mls/hr Q12H IV 04/18/25 14:30 04/19/25 02:41 50 MLS/HR Aspirin 81 mg DAILY PO 04/19/25 10:00 04/19/25 09:08 81 MG Estradiol 1 mg DAILY PO 04/19/25 10:00 Lamotrigine 100 mg BID PO 04/18/25 22:00 04/19/25 09:09 100 MG Lisinopril 5 mg BID PO 04/18/25 22:00 04/19/25 09:09 5 MG Topiramate 100 mg BID PO 04/18/25 22:00 04/19/25 09:09 100 MG Buspirone HCl 10 mg BID PO 04/18/25 22:00 04/19/25 09:09 10 MG Fluoxetine HCl 20 mg DAILY PO 04/19/25 10:00 04/19/25 09:10 20 MG Oxcarbazepine 300 mg BID PO 04/18/25 22:00 04/19/25 09:08 300 MG Hydrochlorothiazide 25 mg DAILY PO 04/19/25 10:00 04/19/25 09:10 25 MG Laboratory Results Laboratory Tests 04/19/25 04:45 Chemistry Test 04/19/25 04:45 Albumin 4.0 g/dL (3.2-4.8) Calcium Level 9.3 mg/dL (8.7-10.4) Total Protein 7.3 g/dL (5.7-8.2) LFT Test 04/19/25 04:45 Alanine Aminotransferase (ALT) 21 U/L (7-40) Alkaline Phosphatase 96 U/L (46-116) Aspartate Amino Transferase (AST) 19 U/L (13-40) Total Bilirubin 0.2 mg/dL (0.2-1.0) Labs and/or images reviewed: Labs reviewed by me, Image(s) reviewed by me Assessment/Plan Assessment/Plan 54-year old female with past medical history of asthma and hypertension who was brought in to the ED by ambulance with the chief complaint of shortness of breath. She mentions having shortness of breath at home since 3 days for which she tried using her albuterol inhaler every 4 hours, but got no relief. She has also had some tightness in the chest. She went to [facility] urgent care this morning, from where she was referred here. She continues to complain of shortness of breath on 4l oxygen and after albuterol and atrovent. 04/18: Patient had GI symptoms nausea and vomiting for 3 days, then she has shortness of breath. On exam patient has wheezing, no pitting edema. Patient has some mediastinal widening but x-ray is rotated, some reticular opacities, we will follow up with BNP, from exam patient is wheezing. We will check COVID flu 04/19: Patient is flu A positive, we will start Tamiflu 75 mg b.i.d. p.o., also start zinc 220 mg daily. Continue albuterol ipratropium and Solu-Medrol as patient continues to wheeze in all lung bryson bilaterally,. Patient is on 4 L nasal cannula to maintain saturations. Continuing IV antibiotics. Postviral pneumonia still possible. Patient is allergic to penicillin so we will instead change in his into ceftriaxone and Flagyl, continue doxycycline. Diagnosis: Acute hypoxic respiratory failure, due to below Pneumonia, Gram-negative Gram-positive likely influenza A infection Acute asthma exacerbation Gastroenteritis possible, infectious etiology likely Anxiety depression Seizure history epileptic disorder Insomnia Hypertension Plan: Antibiotics IV, Unasyn/doxycycline Duo nebs Solu-Medrol 40 daily Prn antiemetics Prn analgesia Continue home meds Med surge Full code Plan discussed with: Patient My Orders Orders - ANAY VILLEDA MD Procedure Category Date Status Time Admit ADMIT 04/18/25 Transmitted 14:24 Code Status CODE 04/18/25 Transmitted 14:24 Sodium Chloride 0.9% PHA 04/18/25 In Process 14:30 Hydrocodone-Acet PHA 04/18/25 In Process 5/325mg Tab (Lynn 14:30 Ondansetron Hcl PHA 04/18/25 In Process (Zofran) 14:30 Enoxaparin Sodium PHA 04/19/25 In Process (Lovenox) 10:00 Cardiac DIET 04/18/25 Transmitted Diet-2gna,Lofat,Lochol Dinner Acetaminophen Tablet PHA 04/18/25 In Process (Tylenol Tablet) 14:30 Ipratropium Medneb PHA 04/18/25 In Process (Atrovent Medneb) 18:00 Albuterol Medneb PHA 04/18/25 In Process (Ventolin Medneb) 18:00 Ampicillin & PHA 04/18/25 In Process Sulbactam Sodium 14:30 Doxycycline PHA 04/18/25 In Process 100mg/100ml 14:30 Aspirin Enteric PHA 04/19/25 In Process Coated Tablet 10:00 Estradiol Tablet PHA 04/19/25 In Process (Estrace Tablet) 10:00 Lamotrigine Tablet PHA 04/18/25 In Process (Lamictal Tablet) 22:00 Lisinopril Tablet PHA 04/18/25 In Process (Zestril Tablet) 22:00 Topiramate (Topamax) PHA 04/18/25 In Process 22:00 Buspirone Hcl Tablet PHA 04/18/25 In Process (Buspar Tablet) 22:00 Fluoxetine Capsule PHA 04/19/25 In Process (Prozac Capsule) 10:00 Oxcarbazepine Tablet PHA 04/18/25 In Process (Trileptal Tablet) 22:00 Hydrochlorothiazide PHA 04/19/25 In Process Tablet (Hydrochlorot 10:00 Methylprednisolone PHA 04/19/25 In Process Sod Succ (Solu Medrol 10:00 Morphine Sulfate PHA 04/18/25 In Process Injection 15:45 * Dietary Consult CONS 04/18/25 Transmitted 18:17 Oseltamivir 75mg PHA 04/19/25 Transmitted Capsule (Tamiflu 75mg 22:00 Zinc Sulfate PHA 04/20/25 Transmitted 10:00 Date of Service: Apr 19, 2025 Billing Provider: ANAY VILLEDA MD Common Visit Codes: [id number] INP/OBS CARE(HIGH) ANAY VILLEDA MD Apr 19, 2025 12:52
[2025-04-19] MEDS: OSELTAMIVIR 75 MG CAP PO SCH (21:44)
[2025-04-20] VITALS (14 sets, daily range): BP systolic 121–136; BP diastolic 79–90; PULSE 60–82; RESP 14–21; TEMP 97.1–98.5; O2SAT 96–100
[2025-04-20 04:02] LABS: Urine Protein, UAD Negative (Negative)
[2025-04-20 06:03] LABS: Hematocrit 41.0 % (36.0-46.0); Hemoglobin 13.5 g/dL (12.2-16.2); Mean Corpuscular Hemoglobin 31.0 pg (28.0-32.0); Mean Corpuscular Volume 93.7 fL (80.0-100.0); Nucleated Red Blood Cells % 0.0 %
[2025-04-20 06:15] LABS: Alanine Aminotransferase 18 U/L (7-40); Albumin 3.7 g/dL (3.2-4.8); Alkaline Phosphatase 90 U/L (46-116); Anion Gap 8 (5-15); BUN/Creatinine Ratio 16.5 (10.0-20.0); Blood Urea Nitrogen 16 mg/dL (9-23); Calcium 9.1 mg/dL (8.7-10.4); Carbon Dioxide 27 mmol/L (20-31); Glucose 87 mg/dL (74-106); Potassium 3.6 mmol/L (3.5-5.1); Sodium 143 mmol/L (136-145); Total Protein 6.7 g/dL (5.7-8.2)
[2025-04-20 06:16] LABS: Chloride 108 mmol/L (98-107)
[2025-04-20 06:19] LABS: Bilirubin, Total 0.2 mg/dL (0.2-1.0)
[2025-04-20] MEDS: ZINC SULFATE 220mg CAP or TAB PO SCH (09:21)
--- NOTE | 2025-04-20 13:39 | DVHPN2 ---
Reviewed: H&P Changes from previous H/P or p: No Changes General: Per HPI Objective Vitals Vital Signs Date Time Temp Pulse Resp B/P (MAP) Pulse Ox O2 Delivery O2 Flow Rate FiO2 04/20/25 11:35 64 14 100 04/20/25 11:29 Nasal Cannula* 4 36 04/20/25 09:22 121/85 04/20/25 08:44 98.5 98.5 Intake/Output Intake and Output 04/20/25 07:00 Intake Total 1200 ml Balance 1200 ml Intake Oral 800 ml IV Total 400 ml # Voids 10 # Bowel Movements 2 Exam GEN: Healthy appearing, well-developed, NAD. HEENT: NC/AT; MMM. CV: RRR, no m/r/g. LUNGS: Wheezing on lung bryson ABD: Soft, NT/ND, NBS, no masses or organomegaly. EXT: skin Warm, well perfused. no rashes. No clubbing, cyanosis, or edema. NEURO: Ambulating with no limitations. No focal deficits. Medications Current Medications Medications Dose Ordered Sig/Sanjay Route Start Time Stop Time Status Last Admin Dose Admin Sodium Chloride 1,000 ml @ 60 mls/hr [id number] IV 04/18/25 14:30 04/20/25 02:40 60 MLS/HR Acetaminophen/ Hydrocodone Bitart 1 tab Q4HP PRN PO 04/18/25 14:30 Ondansetron HCl 4 mg Q4HP PRN IV 04/18/25 14:30 Enoxaparin Sodium 40 mg DAILY SC 04/19/25 10:00 04/20/25 09:24 40 MG Acetaminophen 650 mg Q6HP PRN PO 04/18/25 14:30 Morphine Sulfate 2 mg Q4HPRN PRN IV 04/18/25 15:45 Methylprednisolone Sodium Succinate 40 mg DAILY IV 04/19/25 10:00 04/20/25 09:23 40 MG Ipratropium [place] 0.5 mg Q6HWA NEB 04/18/25 18:00 04/20/25 11:27 0.5 MG Albuterol 2.5 mg Q6HWA NEB 04/18/25 18:00 04/20/25 11:27 2.5 MG Doxycycline Hyclate 100 ml @ 50 mls/hr Q12H IV 04/18/25 14:30 04/20/25 02:40 50 MLS/HR Aspirin 81 mg DAILY PO 04/19/25 10:00 04/20/25 09:23 81 MG Estradiol 1 mg DAILY PO 04/19/25 10:00 04/20/25 09:24 1 MG Lamotrigine 100 mg BID PO 04/18/25 22:00 04/20/25 09:22 100 MG Lisinopril 5 mg BID PO 04/18/25 22:00 04/20/25 09:22 5 MG Topiramate 100 mg BID PO 04/18/25 22:00 04/20/25 09:23 100 MG Buspirone HCl 10 mg BID PO 04/18/25 22:00 04/20/25 09:23 10 MG Fluoxetine HCl 20 mg DAILY PO 04/19/25 10:00 04/20/25 09:22 20 MG Oxcarbazepine 300 mg BID PO 04/18/25 22:00 04/20/25 09:22 300 MG Hydrochlorothiazide 25 mg DAILY PO 04/19/25 10:00 04/20/25 09:22 25 MG Oseltamivir Phosphate 75 mg Q12HR PO 04/19/25 22:00 04/24/25 21:59 04/20/25 09:23 75 MG Zinc Sulfate 220 mg DAILY PO 04/20/25 10:00 04/20/25 09:21 220 MG Ceftriaxone Sodium 50 ml @ 100 mls/hr DAILY@09 IV 04/20/25 09:00 04/20/25 09:21 100 MLS/HR Metronidazole 100 ml @ 100 mls/hr Q8HR IV 04/19/25 22:00 04/20/25 12:53 100 MLS/HR Laboratory Results Laboratory Tests 04/20/25 05:34 Chemistry Test 04/20/25 05:34 Albumin 3.7 g/dL (3.2-4.8) Calcium Level 9.1 mg/dL (8.7-10.4) Total Protein 6.7 g/dL (5.7-8.2) LFT Test 04/20/25 05:34 Alanine Aminotransferase (ALT) 18 U/L (7-40) Alkaline Phosphatase 90 U/L (46-116) Aspartate Amino Transferase (AST) 14 U/L (13-40) Total Bilirubin 0.2 mg/dL (0.2-1.0) Urinalysis Test 04/20/25 03:54 Urine Color Light-yellow (Yellow) Urine Clarity Clear (Clear) Urine pH 6.5 (5.0-9.0) Urine Specific [place] 1.024 (1.001-1.035) Urine Protein Negative (Negative) Urine Ketones Negative (Negative) Urine Blood Negative /uL (Negative) Urine Nitrite Negative (Negative) Urine Bilirubin Negative (Negative) Urine Urobilinogen Normal mg/dL (Negative) Urine Leukocyte Esterase Negative /uL (Negative) Urine RBC 1 /hpf (0 - 4) Urine Microscopic WBC < 1 /HPF (0-5) Urine Squamous Epithelial Cells Few /hpf (<5) Urine Bacteria None seen /hpf (None Seen) Urine Mucus Few (None Seen) Urine Glucose Normal mg/dL (Normal) Labs and/or images reviewed: Labs reviewed by me, Image(s) reviewed by me Assessment/Plan Assessment/Plan 54-year old female with past medical history of asthma and hypertension who was brought in to the ED by ambulance with the chief complaint of shortness of breath. She mentions having shortness of breath at home since 3 days for which she tried using her albuterol inhaler every 4 hours, but got no relief. She has also had some tightness in the chest. She went to [facility] urgent care this morning, from where she was referred here. She continues to complain of shortness of breath on 4l oxygen and after albuterol and atrovent. 04/18: Patient had GI symptoms nausea and vomiting for 3 days, then she has shortness of breath. On exam patient has wheezing, no pitting edema. Patient has some mediastinal widening but x-ray is rotated, some reticular opacities, we will follow up with BNP, from exam patient is wheezing. We will check COVID flu 04/19: Patient is flu A positive, we will start Tamiflu 75 mg b.i.d. p.o., also start zinc 220 mg daily. Continue albuterol ipratropium and Solu-Medrol as patient continues to wheeze in all lung bryson bilaterally,. Patient is on 4 L nasal cannula to maintain saturations. Continuing IV antibiotics. Postviral pneumonia still possible. Patient is allergic to penicillin so we will instead change in his into ceftriaxone and Flagyl, continue doxycycline. 04/20: Patient said she is not feeling better. But her oxygen is down to 2 L now. She is though wheezing in all lung bryson still. We will continue antibiotics ceftriaxone Flagyl doxycycline. We will increase Solu-Medrol to 40 b.i.d.. Continuing duo nebs scheduled. Diagnosis: Acute hypoxic respiratory failure, due to below Pneumonia, Gram-negative Gram-positive likely influenza A infection Acute asthma exacerbation Gastroenteritis possible, infectious etiology likely Anxiety depression Seizure history epileptic disorder Insomnia Hypertension Plan: Antibiotics IV, Unasyn/doxycycline Duo nebs Solu-Medrol 40 daily Prn antiemetics Prn analgesia Continue home meds Med surge Full code Plan discussed with: Patient My Orders Orders - ANAY VILLEDA MD Procedure Category Date Status Time Ceftriaxone 1gm/50ml PHA 04/20/25 In Process (Rocephin) 09:00 Metronidazole PHA 04/19/25 In Process 500mg/100ml (Flagyl 22:00 Date of Service: Apr 20, 2025 Billing Provider: ANAY VILLEDA MD Common Visit Codes: [id number] INP/OBS CARE(HIGH) ANAY VILLEDA MD Apr 20, 2025 13:39
[2025-04-20] MEDS: methylPREDNISolone SOD SUCC 40 MG/ML VL IV SCH (22:22)
[2025-04-21] VITALS (14 sets, daily range): BP systolic 124–138; BP diastolic 69–90; PULSE 68–86; RESP 14–20; TEMP 97.4–99.4; O2SAT 95–100
[2025-04-21 05:18] LABS: Hematocrit 43.2 % (36.0-46.0); Hemoglobin 14.6 g/dL (12.2-16.2); Mean Corpuscular Hemoglobin 31.5 pg (28.0-32.0); Mean Corpuscular Volume 93.3 fL (80.0-100.0); Nucleated Red Blood Cells % 0.0 %
[2025-04-21] MEDS: HYDROcodone-ACET 5/325MG TAB PO PRN (05:40)
--- NOTE | 2025-04-21 13:19 | DVHPN2 ---
Reviewed: H&P Changes from previous H/P or p: No Changes General: Per HPI Objective Vitals Vital Signs Date Time Temp Pulse Resp B/P (MAP) Pulse Ox O2 Delivery O2 Flow Rate FiO2 04/21/25 12:36 72 16 100 04/21/25 12:31 Nasal Cannula* 2 28 04/21/25 09:31 130/76 04/21/25 09:00 98.0 98.0 Intake/Output Intake and Output 04/21/25 07:00 Intake Total 1450 ml Balance 1450 ml Intake Oral 900 ml IV Total 550 ml # Voids 7 Exam GEN: Healthy appearing, well-developed, NAD. HEENT: NC/AT; MMM. CV: RRR, no m/r/g. LUNGS: Wheezing on lung bryson ABD: Soft, NT/ND, NBS, no masses or organomegaly. EXT: skin Warm, well perfused. no rashes. No clubbing, cyanosis, or edema. NEURO: Ambulating with no limitations. No focal deficits. Medications Current Medications Medications Dose Ordered Sig/Sanjay Route Start Time Stop Time Status Last Admin Dose Admin Sodium Chloride 1,000 ml @ 60 mls/hr [id number] IV 04/18/25 14:30 04/21/25 07:53 60 MLS/HR Acetaminophen/ Hydrocodone Bitart 1 tab Q4HP PRN PO 04/18/25 14:30 04/21/25 05:40 1 TAB Ondansetron HCl 4 mg Q4HP PRN IV 04/18/25 14:30 Enoxaparin Sodium 40 mg DAILY SC 04/19/25 10:00 04/21/25 09:05 40 MG Acetaminophen 650 mg Q6HP PRN PO 04/18/25 14:30 Morphine Sulfate 2 mg Q4HPRN PRN IV 04/18/25 15:45 Ipratropium [place] 0.5 mg Q6HWA NEB 04/18/25 18:00 04/21/25 12:30 0.5 MG Albuterol 2.5 mg Q6HWA NEB 04/18/25 18:00 04/21/25 12:31 2.5 MG Doxycycline Hyclate 100 ml @ 50 mls/hr Q12H IV 04/18/25 14:30 04/21/25 01:52 50 MLS/HR Aspirin 81 mg DAILY PO 04/19/25 10:00 04/21/25 09:01 81 MG Estradiol 1 mg DAILY PO 04/19/25 10:00 04/21/25 09:28 1 MG Lamotrigine 100 mg BID PO 04/18/25 22:00 04/21/25 09:02 100 MG Lisinopril 5 mg BID PO 04/18/25 22:00 04/21/25 09:31 5 MG Topiramate 100 mg BID PO 04/18/25 22:00 04/21/25 09:03 100 MG Buspirone HCl 10 mg BID PO 04/18/25 22:00 04/21/25 09:01 10 MG Fluoxetine HCl 20 mg DAILY PO 04/19/25 10:00 04/21/25 09:01 20 MG Oxcarbazepine 300 mg BID PO 04/18/25 22:00 04/21/25 09:03 300 MG Hydrochlorothiazide 25 mg DAILY PO 04/19/25 10:00 04/21/25 09:30 25 MG Oseltamivir Phosphate 75 mg Q12HR PO 04/19/25 22:00 04/24/25 21:59 04/21/25 09:02 75 MG Zinc Sulfate 220 mg DAILY PO 04/20/25 10:00 04/21/25 09:08 220 MG Ceftriaxone Sodium 50 ml @ 100 mls/hr DAILY@09 IV 04/20/25 09:00 04/21/25 09:00 100 MLS/HR Metronidazole 100 ml @ 100 mls/hr Q8HR IV 04/19/25 22:00 04/21/25 05:40 100 MLS/HR Methylprednisolone Sodium Succinate 40 mg BID IV 04/20/25 22:00 04/21/25 09:00 40 MG Laboratory Results Laboratory Tests 04/20/25 05:34 04/21/25 05:04 Urinalysis Test 04/20/25 03:54 Urine Color Light-yellow (Yellow) Urine Clarity Clear (Clear) Urine pH 6.5 (5.0-9.0) Urine Specific [place] 1.024 (1.001-1.035) Urine Protein Negative (Negative) Urine Ketones Negative (Negative) Urine Blood Negative /uL (Negative) Urine Nitrite Negative (Negative) Urine Bilirubin Negative (Negative) Urine Urobilinogen Normal mg/dL (Negative) Urine Leukocyte Esterase Negative /uL (Negative) Urine RBC 1 /hpf (0 - 4) Urine Microscopic WBC < 1 /HPF (0-5) Urine Squamous Epithelial Cells Few /hpf (<5) Urine Bacteria None seen /hpf (None Seen) Urine Mucus Few (None Seen) Urine Glucose Normal mg/dL (Normal) Labs and/or images reviewed: Labs reviewed by me, Image(s) reviewed by me Assessment/Plan Assessment/Plan 54-year old female with past medical history of asthma and hypertension who was brought in to the ED by ambulance with the chief complaint of shortness of breath. She mentions having shortness of breath at home since 3 days for which she tried using her albuterol inhaler every 4 hours, but got no relief. She has also had some tightness in the chest. She went to [facility] urgent care this morning, from where she was referred here. She continues to complain of shortness of breath on 4l oxygen and after albuterol and atrovent. 04/18: Patient had GI symptoms nausea and vomiting for 3 days, then she has shortness of breath. On exam patient has wheezing, no pitting edema. Patient has some mediastinal widening but x-ray is rotated, some reticular opacities, we will follow up with BNP, from exam patient is wheezing. We will check COVID flu 04/19: Patient is flu A positive, we will start Tamiflu 75 mg b.i.d. p.o., also start zinc 220 mg daily. Continue albuterol ipratropium and Solu-Medrol as patient continues to wheeze in all lung bryson bilaterally,. Patient is on 4 L nasal cannula to maintain saturations. Continuing IV antibiotics. Postviral pneumonia still possible. Patient is allergic to penicillin so we will instead change in his into ceftriaxone and Flagyl, continue doxycycline. 04/20: Patient said she is not feeling better. But her oxygen is down to 2 L now. She is though wheezing in all lung bryson still. We will continue antibiotics ceftriaxone Flagyl doxycycline. We will increase Solu-Medrol to 40 b.i.d.. Continuing duo nebs scheduled. 04/21: Still wheezing, complaining less above symptoms but still coughing a lot, wheezing improving but still present. We will continue antibiotics ceftriaxone Flagyl doxycycline. Increase Solu-Medrol to 40 t.i.d.. Nurse to wean off oxygen as much as possible. Diagnosis: Acute hypoxic respiratory failure, due to below Pneumonia, Gram-negative Gram-positive likely influenza A infection Acute asthma exacerbation Gastroenteritis possible, infectious etiology likely Anxiety depression Seizure history epileptic disorder Insomnia Hypertension Plan: Antibiotics IV, Unasyn/doxycycline Duo nebs Solu-Medrol 40 daily Prn antiemetics Prn analgesia Continue home meds Med surge Full code Plan discussed with: Patient My Orders Orders - ANAY VILLEDA MD Procedure Category Date Status Time Methylprednisolone PHA 04/20/25 In Process Sod Succ (Solu Medrol 22:00 Date of Service: Apr 21, 2025 Billing Provider: ANAY VILLEDA MD Common Visit Codes: [id number] INP/OBS CARE(HIGH) AANY VILLEDA MD Apr 21, 2025 13:19
[2025-04-21] MEDS: methylPREDNISolone SOD SUCC 40 MG/ML VL IV SCH (13:45)
[2025-04-22] VITALS (11 sets, daily range): BP systolic 107–123; BP diastolic 0–80; PULSE 60–87; RESP 16–20; TEMP 36.9; O2SAT 95–100
[2025-04-22] MEDS: DOXYCYCLINE 100MG/100ML 100 ML IV SCH (11:49)
--- NOTE | 2025-04-22 13:29 | DVHPN2 ---
Reviewed: H&P Changes from previous H/P or p: No Changes General: Per HPI Objective Vitals Vital Signs Date Time Temp Pulse Resp B/P (MAP) Pulse Ox O2 Delivery O2 Flow Rate FiO2 04/22/25 12:59 98.5 84 16 107/66 (80) 97 98.5 04/22/25 11:37 Nasal Cannula 2.0 04/22/25 11:37 28 Intake/Output Intake and Output 04/22/25 07:00 Intake Total 3315 ml Balance 3315 ml Intake Oral 1965 ml IV Total 1350 ml # Voids 7 # Bowel Movements 1 Exam GEN: Healthy appearing, well-developed, NAD. HEENT: NC/AT; MMM. CV: RRR, no m/r/g. LUNGS: Wheezing on lung bryson ABD: Soft, NT/ND, NBS, no masses or organomegaly. EXT: skin Warm, well perfused. no rashes. No clubbing, cyanosis, or edema. NEURO: Ambulating with no limitations. No focal deficits. Medications Current Medications Medications Dose Ordered Sig/Sanjay Route Start Time Stop Time Status Last Admin Dose Admin Sodium Chloride 1,000 ml @ 60 mls/hr [id number] IV 04/18/25 14:30 04/21/25 07:53 60 MLS/HR Acetaminophen/ Hydrocodone Bitart 1 tab Q4HP PRN PO 04/18/25 14:30 04/21/25 05:40 1 TAB Ondansetron HCl 4 mg Q4HP PRN IV 04/18/25 14:30 Enoxaparin Sodium 40 mg DAILY SC 04/19/25 10:00 04/22/25 08:57 40 MG Acetaminophen 650 mg Q6HP PRN PO 04/18/25 14:30 Morphine Sulfate 2 mg Q4HPRN PRN IV 04/18/25 15:45 Ipratropium [place] 0.5 mg Q6HWA NEB 04/18/25 18:00 04/22/25 11:37 0.5 MG Albuterol 2.5 mg Q6HWA NEB 04/18/25 18:00 04/22/25 11:37 2.5 MG Aspirin 81 mg DAILY PO 04/19/25 10:00 04/22/25 08:58 81 MG Estradiol 1 mg DAILY PO 04/19/25 10:00 04/22/25 09:10 1 MG Lamotrigine 100 mg BID PO 04/18/25 22:00 04/22/25 08:59 100 MG Lisinopril 5 mg BID PO 04/18/25 22:00 04/22/25 08:59 5 MG Topiramate 100 mg BID PO 04/18/25 22:00 04/22/25 08:58 100 MG Buspirone HCl 10 mg BID PO 04/18/25 22:00 04/22/25 08:58 10 MG Fluoxetine HCl 20 mg DAILY PO 04/19/25 10:00 04/22/25 09:00 20 MG Oxcarbazepine 300 mg BID PO 04/18/25 22:00 04/22/25 09:00 300 MG Hydrochlorothiazide 25 mg DAILY PO 04/19/25 10:00 04/22/25 09:00 25 MG Oseltamivir Phosphate 75 mg Q12HR PO 04/19/25 22:00 04/24/25 21:59 04/22/25 09:00 75 MG Zinc Sulfate 220 mg DAILY PO 04/20/25 10:00 04/22/25 08:59 220 MG Ceftriaxone Sodium 50 ml @ 100 mls/hr DAILY@09 IV 04/20/25 09:00 04/22/25 08:56 100 MLS/HR Metronidazole 100 ml @ 100 mls/hr Q8HR IV 04/19/25 22:00 04/22/25 06:12 100 MLS/HR Methylprednisolone Sodium Succinate 40 mg TID IV 04/21/25 14:00 04/22/25 06:13 40 MG Doxycycline Hyclate 100 ml @ 50 mls/hr Q12H IV 04/22/25 09:00 04/22/25 11:49 50 MLS/HR Laboratory Results Laboratory Tests 04/20/25 05:34 04/21/25 05:04 Urinalysis Test 04/20/25 03:54 Urine Color Light-yellow (Yellow) Urine Clarity Clear (Clear) Urine pH 6.5 (5.0-9.0) Urine Specific [place] 1.024 (1.001-1.035) Urine Protein Negative (Negative) Urine Ketones Negative (Negative) Urine Blood Negative /uL (Negative) Urine Nitrite Negative (Negative) Urine Bilirubin Negative (Negative) Urine Urobilinogen Normal mg/dL (Negative) Urine Leukocyte Esterase Negative /uL (Negative) Urine RBC 1 /hpf (0 - 4) Urine Microscopic WBC < 1 /HPF (0-5) Urine Squamous Epithelial Cells Few /hpf (<5) Urine Bacteria None seen /hpf (None Seen) Urine Mucus Few (None Seen) Urine Glucose Normal mg/dL (Normal) Labs and/or images reviewed: Labs reviewed by me, Image(s) reviewed by me Assessment/Plan Assessment/Plan 54-year old female with past medical history of asthma and hypertension who was brought in to the ED by ambulance with the chief complaint of shortness of breath. She mentions having shortness of breath at home since 3 days for which she tried using her albuterol inhaler every 4 hours, but got no relief. She has also had some tightness in the chest. She went to [facility] urgent care this morning, from where she was referred here. She continues to complain of shortness of breath on 4l oxygen and after albuterol and atrovent. 04/18: Patient had GI symptoms nausea and vomiting for 3 days, then she has shortness of breath. On exam patient has wheezing, no pitting edema. Patient has some mediastinal widening but x-ray is rotated, some reticular opacities, we will follow up with BNP, from exam patient is wheezing. We will check COVID flu 04/19: Patient is flu A positive, we will start Tamiflu 75 mg b.i.d. p.o., also start zinc 220 mg daily. Continue albuterol ipratropium and Solu-Medrol as patient continues to wheeze in all lung bryson bilaterally,. Patient is on 4 L nasal cannula to maintain saturations. Continuing IV antibiotics. Postviral pneumonia still possible. Patient is allergic to penicillin so we will instead change in his into ceftriaxone and Flagyl, continue doxycycline. 04/20: Patient said she is not feeling better. But her oxygen is down to 2 L now. She is though wheezing in all lung bryson still. We will continue antibiotics ceftriaxone Flagyl doxycycline. We will increase Solu-Medrol to 40 b.i.d.. Continuing duo nebs scheduled. 04/21: Still wheezing, complaining less above symptoms but still coughing a lot, wheezing improving but still present. We will continue antibiotics ceftriaxone Flagyl doxycycline. Increase Solu-Medrol to 40 t.i.d.. Nurse to wean off oxygen as much as possible. 04/22: Some rales heard today. We will get BNP, we will get NyQuil. Try Lasix 40 IV 1 time. Continuing IV antibiotics, continuing Solu-Medrol 40 IV t.i.d.. Cough is improving. Still on 2 L oxygen nasal cannula we will try to wean off. If able to wean off we will try to discharge today. Tentative discharge plan prednisone long taper, oral antibiotics Augmentin 875 twice daily for 5 days, doxycycline 100 mg twice daily for 5 days, rescue inhaler to use prn. We will follow up with results. Continue therapy as prior. Diagnosis: Acute hypoxic respiratory failure, due to below Pneumonia, Gram-negative Gram-positive likely influenza A infection Acute asthma exacerbation Gastroenteritis possible, infectious etiology likely Anxiety depression Seizure history epileptic disorder Insomnia Hypertension Plan: Antibiotics IV, Unasyn/doxycycline Duo nebs Solu-Medrol 40 daily Prn antiemetics Prn analgesia Continue home meds Med surge Full code Plan discussed with: Patient My Orders Orders - ANAY VILLEDA MD Procedure Category Date Status Time Doxycycline PHA 04/22/25 In Process 100mg/100ml 09:00 Date of Service: Apr 22, 2025 Billing Provider: ANAY VILLEDA MD Common Visit Codes: [id number] INP/OBS CARE(HIGH) ANAY VILLEDA MD Apr 22, 2025 13:28
[2025-04-22] MEDS: FUROSEMIDE 40 MG/4 ML VIAL IV ONE (13:44)
[2025-04-22] MEDS: PROCHLORPERAZINE EDISYLATE 5 MG/ML 2ML VIAL IV ONE (16:12)
[2025-04-22] MEDS: ACETAMINOPHEN 325 MG TAB PO PRN (16:12)
[2025-04-22] MEDS ORDERED: AUG875T PO (16:20)
[2025-04-22] MEDS ORDERED: DOXY100C79 PO (16:20)
[2025-04-22] MEDS ORDERED: PRED20TA2 PO (16:20)
--- NOTE | 2025-04-22 16:21 | DVHDS2 ---
Discharge Summary Date of Admission Apr 18, 2025 at 14:24 Date of Discharge: Apr 22, 2025 Labs/Diagnostic Data: Laboratory Results Test 04/21/25 05:04 04/20/25 05:34 04/20/25 03:54 04/18/25 14:54 White Blood Count 8.9 10^3/uL (4.4-10.8) Red Blood Count 4.63 10^6/uL (4.0-5.20) Hemoglobin 14.6 g/dL (12.2-16.2) Hematocrit 43.2 % (36.0-46.0) Mean Corpuscular Volume 93.3 fL (80.0-100.0) Mean Corpuscular Hemoglobin 31.5 pg (28.0-32.0) Mean Corpuscular Hemoglobin Concent 33.7 g/dL (32.0-36.0) Red Cell Distribution Width 13.5 % (11.8-14.3) Platelet Count 239 10^3/uL (140-450) Mean Platelet Volume 9.0 fL (6.9-10.8) Neutrophils (%) (Auto) 90.0 % (37.0-80.0) Lymphocytes (%) (Auto) 8.6 % (10.0-50.0) Monocytes (%) (Auto) 1.3 % (0.0-12.0) Eosinophils (%) (Auto) 0.0 % (0.0-7.0) Basophils (%) (Auto) 0.1 % (0.0-2.0) Neutrophils # (Auto) 8.0 10 ^3/uL (1.6-8.6) Lymphocytes # (Auto) 0.8 10 ^3/uL (0.4-5.4) Monocytes # (Auto) 0.1 10 ^3/uL (0-1.3) Eosinophils # (Auto) 0 10 ^3/uL (0-0.8) Basophils # (Auto) 0 10 ^3/uL (0-0.2) Nucleated Red Blood Cells 0.0 % Sodium Level 143 mmol/L (136-145) Potassium Level 3.6 mmol/L (3.5-5.1) Chloride Level 108 mmol/L (98-107) Carbon Dioxide Level 27 mmol/L (20-31) Anion Gap 8 (5-15) Blood Urea Nitrogen 16 mg/dL (9-23) Creatinine 0.97 mg/dL (0.550-1.02) Glomerular Filtration Rate Calc 69 mL/min (>90) BUN/Creatinine Ratio 16.5 (10.0-20.0) Serum Glucose 87 mg/dL (74-106) Calcium Level 9.1 mg/dL (8.7-10.4) Total Bilirubin 0.2 mg/dL (0.2-1.0) Aspartate Amino Transferase (AST) 14 U/L (13-40) Alanine Aminotransferase (ALT) 18 U/L (7-40) Alkaline Phosphatase 90 U/L (46-116) Total Protein 6.7 g/dL (5.7-8.2) Albumin 3.7 g/dL (3.2-4.8) Urine Color Light-yellow (Yellow) Urine Clarity Clear (Clear) Urine pH 6.5 (5.0-9.0) Urine Specific Panther 1.024 (1.001-1.035) Urine Protein Negative (Negative) Urine Ketones Negative (Negative) Urine Blood Negative /uL (Negative) Urine Nitrite Negative (Negative) Urine Bilirubin Negative (Negative) Urine Urobilinogen Normal mg/dL (Negative) Urine Leukocyte Esterase Negative /uL (Negative) Urine RBC 1 /hpf (0 - 4) Urine Microscopic WBC < 1 /HPF (0-5) Urine Squamous Epithelial Cells Few /hpf (<5) Urine Bacteria None seen /hpf (None Seen) Urine Mucus Few (None Seen) Urine Glucose Normal mg/dL (Normal) Troponin I High Sensitivity 27 ng/L (</=34) Test 04/18/25 13:54 Influenza Type A Antigen Positive (Negative) Influenza Type B Antigen Negative (Negative) SARS-CoV-2 Antigen (Rapid) Negative (NEGATIVE) Other Laboratory Tests 04/21/25 05:04 04/20/25 05:34 Brief Hx & Hospital Course: 54-year old female with past medical history of asthma and hypertension who was brought in to the ED by ambulance with the chief complaint of shortness of breath. She mentions having shortness of breath at home since 3 days for which she tried using her albuterol inhaler every 4 hours, but got no relief. She has also had some tightness in the chest. She went to [facility] urgent care this morning, from where she was referred here. She continues to complain of shortness of breath on 4l oxygen and after albuterol and atrovent. 04/18: Patient had GI symptoms nausea and vomiting for 3 days, then she has shortness of breath. On exam patient has wheezing, no pitting edema. Patient has some mediastinal widening but x-ray is rotated, some reticular opacities, we will follow up with BNP, from exam patient is wheezing. We will check COVID flu 04/19: Patient is flu A positive, we will start Tamiflu 75 mg b.i.d. p.o., also start zinc 220 mg daily. Continue albuterol ipratropium and Solu-Medrol as patient continues to wheeze in all lung bryson bilaterally,. Patient is on 4 L nasal cannula to maintain saturations. Continuing IV antibiotics. Postviral pneumonia still possible. Patient is allergic to penicillin so we will instead change in his into ceftriaxone and Flagyl, continue doxycycline. 04/20: Patient said she is not feeling better. But her oxygen is down to 2 L now. She is though wheezing in all lung bryson still. We will continue antibiotics ceftriaxone Flagyl doxycycline. We will increase Solu-Medrol to 40 b.i.d.. Continuing duo nebs scheduled. 04/21: Still wheezing, complaining less above symptoms but still coughing a lot, wheezing improving but still present. We will continue antibiotics ceftriaxone Flagyl doxycycline. Increase Solu-Medrol to 40 t.i.d.. Nurse to wean off oxygen as much as possible. 04/22: Some rales heard today. We will get BNP, we will get NyQuil. Try Lasix 40 IV 1 time. Continuing IV antibiotics, continuing Solu-Medrol 40 IV t.i.d.. Cough is improving. Still on 2 L oxygen nasal cannula we will try to wean off. If able to wean off we will try to discharge today. Tentative discharge plan prednisone long taper, oral antibiotics Augmentin 875 twice daily for 5 days, doxycycline 100 mg twice daily for 5 days, rescue inhaler to use prn. We will follow up with results. Continue therapy as prior. - weaned off oxygen. Ready for discharge. Diagnosis: Acute hypoxic respiratory failure, due to below Pneumonia, Gram-negative Gram-positive likely influenza A infection Acute asthma exacerbation Gastroenteritis possible, infectious etiology likely Plan: - Augmentin 875 twice daily for 5 days - doxycycline 100 mg twice daily for 5 days - Prednisone taper (2pillx 5 days, 1 x5day, half x6 days) - rescue inhaler to use prn - pcp followup with echo results Condition at Discharge: Fair Final Diagnosis/Problems List Acute hypoxic respiratory failure, due to below Pneumonia, Gram-negative Gram-positive likely influenza A infection Acute asthma exacerbation Gastroenteritis possible, infectious etiology likely Discharge Disposition: Home Discharge Instruct/Medications Scheduled Albuterol Sulfate (Albuterol Sulfate Hfa), 108 MCG IN TID Aspirin (Aspirin 81), 81 MG OR DAILY Azithromycin (Zithromax), 1 TAB PO DAILY Buspirone Hcl (Buspirone Hcl), 10 MG PO BID, (Reported) Cephalexin Monohydrate (Cephalexin), 1 CAP PO QID Clonazepam (KlonoPIN TABLET), 1 TAB PO DAILY, (Reported) Estradiol (Estradiol), 1 MG PO DAILY, (Reported) Fluoxetine HCl (Fluoxetine), 20 MG PO DAILY Hydroxyzine HCl (Hydroxyzine Hydrochloride), 25 MG PO TID Hydroxyzine Pamoate (Vistaril), 25 MG PO HS, (Reported) Lamotrigine (Lamotrigine), 1 TAB PO BID, (Reported) Lisinopril (Lisinopril), 5 MG PO BID, (Reported) Lurasidone Hydrochloride (Latuda), Unknown Dose PO QPM, (Reported) Oxcarbazepine (Trileptal), 300 MG PO BID, (Reported) Prednisone (Prednisone), 20 MG PO BID Topiramate (Topiramate), 100 MG PO BID, (Reported) Triamterene & Hydrochlorothiaz (Maxzide-25), 1 TAB PO DAILY, (Reported) Zolpidem Tartrate (Zolpidem Tartrate), 1 TAB PO QPM, (Reported) Scheduled PRN Hydrocodone-Acetaminophen (Hydrocodone Bitartrate/AC 5-325 mg), 1 TAB PO Q8HR PRN Ondansetron Odt 4MG Tab (Zofran Po), 4 MG PO Q6HPRN PRN Miscellaneous Medications Acetaminophen (Apap), 325 MG PO, (Reported) Benztropine Mesylate (Benztropine Mesylate), 1 MG PO, (Reported) Ibuprofen (Ibuprofen), 600 MG PO, (Reported) Discharge Statement: "Patient was advised to return to the ER or call 911 if any headaches, dizziness, shortness of breath, chest pain, abdominal pain, bleeding, fevers, or worsening of medical condition. Patient was counseled about treatment plan, medications, possible side effects, patientverbalized understanding. All questions were answered to the best of my ability. This discharge took greater then 30 minutes in planning, reviewing documentation, counseling the patient, and discussing with other team members." ASSESSMENT ASSESSMENT Assessment Date of Service: Apr 22, 2025 Billing Provider: ANAY VILLEDA MD Common Visit Codes: 10174-LUQ/OBS DISCH DAY >30min ANAY VILLEDA MD Apr 22, 2025 16:21
--- NOTE | 2025-04-23 12:53 | DVHSR ---
APPROVED REPORT EXAM: Two-dimensional and M-mode echocardiogram with Doppler and color Doppler. Blood Pressure: 107/66 mmHg INDICATION SOB RISK FACTORS Height: 5'6, Weight: 176 DIMENSIONS LVDd 3.8 (3.8-5.7cm) LA (2D) 3.4 (1.9-4.0cm) Aortic Root 2.3 (2.0-3.7cm) LVDs 2.7 (2.5-4.0cm) LA (MM) (1.9-4.0cm) Aortic Cusp Exc 1.8 (1.5-2.0cm) EF (%) 53.0 (55-70%) Rt. Atrium (1.9-4.0cm) Asc. Aorta 3.1 cm IVSd 1.2 (0.7-1.1cm) RV (D) (1.8-2.4cm) PWd 1.1 (0.7-1.1cm) Mitral Valve Mitral Mitral Stenosis E wave 0.53m/s MV Mean GR. mmHg A wave 0.78m/s MV Peak GR. mmHg E/A ratio 0.7 2D MVA cm2 DECEL Time 285ms PRESS 1/2 Time ms Aortic Valve Aortic Valve Aortic Stenosis V1 1.43m/s AO Mean GR. 6mmHg V2 1.71m/s AO Peak GR. 12mmHg LVOT Diameter 2.0 (1.8-2.4cm) Doppler LEX 2.63cm2 Pulmonic Valve V2 1.32m/s Other Information Technically limited study due to body habitus. Conclusion Sinus rhythm Concentric LVH. Valves are normal. EF of 60% with normal RV function. Dopplers unremarkable. No pericardial effusion masses or vegetations.
== END 2025-04-22 18:46 | disposition home or self-care (01) | DRG 177 ==
LOC: EDBD 11:06 → ER 11:06 → OVERFLOW 14:24 → EAST 18:06
PROVIDERS: ADMIT Student in an Organized Health Care Education/Training Program; ATTEND Student in an Organized Health Care Education/Training Program
DX: J15.69 Pneumonia due to other Gram-negative bacteria (principal); J96.01 Acute respiratory failure with hypoxia; R65.11 Systemic inflammatory response syndrome (SIRS) of non-infectious origin with acute organ dysfunction; J45.901 Unspecified asthma with (acute) exacerbation; J10.08 Influenza due to other identified influenza virus with other specified pneumonia; J15.9 Unspecified bacterial pneumonia; F32.A Depression, unspecified; G40.909 Epilepsy, unspecified, not intractable, without status epilepticus; I10 Essential (primary) hypertension; A09 Infectious gastroenteritis and colitis, unspecified; Z20.822 Contact with and (suspected) exposure to COVID-19; F41.9 Anxiety disorder, unspecified; G47.00 Insomnia, unspecified; Z79.2 Long term (current) use of antibiotics; Z88.1 Allergy status to other antibiotic agents; Z88.0 Allergy status to penicillin; Z79.82 Long term (current) use of aspirin; Z79.1 Long term (current) use of non-steroidal anti-inflammatories (NSAID); Z79.899 Other long term (current) drug therapy; Z90.710 Acquired absence of both cervix and uterus; Z90.49 Acquired absence of other specified parts of digestive tract; Z86.73 Personal history of transient ischemic attack (TIA), and cerebral infarction without residual deficits
CPT/HCPCS: 36415; 71045; 80048; 80053; 81001; 83880; 84484; 85025; 87426; 87804; 93306; 94640; 96365; 96375; G0378; J3490